=== PATIENT | female | born 1985 | race Caucasian/White ===

== ENCOUNTER 2023-02-13 08:36 | Outpatient (OUT) | payer OTHER, SELFPAY ==
[2023-02-13 09:18] LABS: Basophils Absolute Auto 0.1 10^3/uL (0.0-0.1); Basophils Percent Auto 0.7 % (0.2-2.0); Eosinophils Absolute Auto 0.2 10^3/uL (0.0-0.7); Hematocrit 36.3 % (36.0-48.0); Hemoglobin 11.3 g/dL (12.0-16.0); Immature Granulocytes Abs Auto 0.02 10^3/uL (0.00-0.03); Immature Granulocytes Pct Auto 0.2 % (0.0-0.5); Lymphocytes Absolute Auto 3.2 10^3/uL (1.2-3.8); Lymphocytes Percent Auto 38.3 % (20.5-60.0); Mean Corpuscular HGB Conc 31.1 g/dL (29.9-35.2); Mean Corpuscular Hemoglobin 24.6 pg (26.7-34.0); Mean Corpuscular Volume 78.9 fL (81.0-99.0); Mean Platelet Volume 10.6 fL (9.5-13.5); Monocytes Absolute Auto 0.6 10^3/uL (0.3-0.8); Neutrophils Absolute Auto 4.3 10^3/uL (1.4-6.5); Neutrophils Percent Auto 51.8 % (43.0-75.0); Platelet Count 317 10^3/uL (150-450); Red Cell Distribution Width 15.1 % (11.0-15.0); White Blood Count 8.4 10^3/uL (4.0-11.0)
[2023-02-13 10:07] LABS: Free T3 2.63 pg/mL (2.18-3.98); Glucose 84 mg/dL (74-106); Thyroid Stimulating Hormone 1.115 uIU/mL (0.358-3.740)
== END 2023-02-13 08:37 | disposition home or self-care (01) ==
LOC: LAB 08:36
PROVIDERS: PCP Family Medicine; Visit Provider Obstetrics & Gynecology
DX: N92.0 Excessive and frequent menstruation with regular cycle (principal); R63.5 Abnormal weight gain
CPT/HCPCS: 36415; 82947; 83525; 84443; 84481; 85025

== ENCOUNTER 2023-07-12 12:05 | Outpatient (OUT) | payer OTHER, SELFPAY ==
[2023-07-12 16:31] LABS: Influenza Virus A PCR POSITIVE (NEGATIVE); Influenza Virus B PCR NEGATIVE (NEGATIVE); SARS-CoV-2 NAA INCONCLUSIVE (NOT DETECTE)
== END 2023-07-12 12:06 | disposition home or self-care (01) ==
LOC: LAB 12:07
PROVIDERS: PCP Family Medicine; Visit Provider Nurse Practitioner Family
DX: J06.9 Acute upper respiratory infection, unspecified (principal)
CPT/HCPCS: 87635

== ENCOUNTER 2023-11-29 11:21 | Outpatient (OUT) | payer OTHER, SELFPAY ==
--- NOTE | 2023-11-29 11:28 | XR_ITS ---
[address] [address] Patient Name: ANTHONY CAMARGO MRN: [id number] date: 1985 Sex: F Assigned Patient Location: [facility] Current Patient Location: Accession/Order Number: [id number] Exam Date: 11/29/2023 11:40 Report Date: 11/30/2023 07:33 At the request of: SALINA DOWNS Procedure: XR knee LT 3V PROCEDURE: XR knee LT 3V COMPARISON: None. HISTORY: Internal Derangement Of Knee M23.90 FINDINGS: BONES:No fracture, acute abnormality, or significant arthropathy. SOFT TISSUES:Negative. No visible soft tissue swelling. EFFUSION:None visible. OTHER: Negative. XR/XR knee LT 3V IMPRESSION: No acute radiographic abnormality Electronically authenticated by: CYNTHIA MAJANO Date: 11/30/2023 07:33
--- OUTSIDE RECORDS SUMMARY | 2023-11-29 11:38 | XMS_ITS | CCD ---
Author Organization [facility] Care Team Providers Care Phys Assistant Name Role Phone Ingrid Thakkar Unavailable MD Salina Qureshi Primary Care Provider [phone] DO Leonid Lopez Attending Provider DR SALINA KENNEDY Primary Care Unavailable JACOB ., JULIETTE Admitting Unavailable JACOB ., JULIETTE Attending Unavailable JACOB Akbar, JULIETTE Consulting Unavailable ION CLEARY Consulting Unavailable DR SALINA KENNEDY Primary Care Unavailable JACOB ., JULIETTE Admitting Unavailable JULIETTE HUTCHINSON Attending Unavailable CAITLIN HAWK Consulting Unavailable RITA GALLARDO Consulting Unavailable JACOB Akbar, JULIETTE Consulting Unavailable ANTONIO MANUEL Admitting Unavailable ANTONIO MANUEL Attending Unavailable DR SALINA KENNEDY Primary Care Unavailable ANTONIO MANUEL Admitting Unavailable ANTONIO MANUEL Attending Unavailable DR SALINA KENNEDY Primary Care Unavailable MD Salina Qureshi Primary Care Provider [phone] DO Ally Sexton Attending Provider ALLY SEXTON Attending Unavailable ALLY SEXTON Attending Unavailable Salina Qureshi Primary Care Unavailable Ally Sexton Admitting Unavailable Ally Sexton Attending Unavailable Ally Sexton Attending Unavailable Salina Qureshi Primary Care Unavailable Ally Sexton Admitting Unavailable Unavailable Unavailable Unavailable Allergies Allergy Classification Reported Allergen(s) Allergy Type Date of Onset Reaction(s) Facility (5 sources) diphenhydrAMINE; Translations: [diphenhydramine] Drug Allergy 09-18-19 18 [facility] (9 sources) metFORMIN; Translations: [Metformin] Drug Allergy 03-27-20 rash [facility] (2 sources) diphenhydrAMINE; Translations: [Benadryl] Drug Allergy Unknown [facility] (4 sources) Morphine; Translations: [morphine] Drug Allergy 04-02-20 itch, Itching [facility] (1 source) imtrex Propensity to adverse reactions palpitations [employer] Other (2 sources) diphenhydrAMINE Drug Allergy 03-27-20 [facility] (2 sources) Morphine Drug Allergy [facility] (1 source) Plasmin Drug Allergy [facility] (3 sources) SUMAtriptan; Translations: [sumatriptan] Drug Allergy 04-02-20 tachycardia [facility] (1 source) Morphine Drug Allergy 04-16-20 [facility] Medications Current Medications Medication Drug Class(es) Dates Sig (Normalized) Sig (Original) acetaminophen 300 mg / butalbital 50 mg / caffeine 40 mg oral capsule (1 source) Barbiturate, Central Nervous System Stimulant, Methylxanthine take 1 capsule by mouth every four hours Fioricet 50-300-40 MG 1 capsule as needed Orally every 4 hrs Active Cortisporin Otic 1%-0.35%-1000 units/ml (1 source) Cortisporin Otic 1%-0.35%-1000 units/ml 3 drops left ear tid for 5 day(s) Active docusate sodium 100 mg oral capsule (8 sources) Start: 04-16-2023 take 1 capsule by mouth twice daily Docusate Sodium (Colace) 100 mg capsule Active 100 MG PO Twice daily April 16, 2023 8:44am Start: 11-16-2020 End: 04-02-2023 take 1 capsule by mouth once daily Docusate Sodium (Colace) 100 mg capsule Discontinued 100 MG PO Daily November 15, 2020 11:00pm April 02, 2023 12:04pm Start: 09-25-2017 End: 08-08-2020 take 100 mg by mouth once daily at bedtime Docusate Sodium Discontinued 100 MG PO Daily at bedtime September 24, 2017 11:00pm August 08, 2020 11:33am escitalopram 20 mg oral tablet (5 sources) Serotonin Reuptake Inhibitor Start: 04-02-2023 take 20 mg by mouth once daily in the morning Escitalopram Oxalate Active 20 MG PO Every morning April 02, 2023 12:00am Start: 08-08-2020 End: 04-02-2023 take 1 tablet by mouth once daily Escitalopram Oxalate (Lexapro) 10 mg Tablet Discontinued 10 MG PO Daily August 07, 2020 11:00pm April 02, 2023 12:04pm ibuprofen 600 mg oral tablet (8 sources) Nonsteroidal Anti-inflammatory Drug Start: 04-16-2023 take 600 mg by mouth every six hours Ibuprofen Active 600 MG PO Q6H April 16, 2023 12:00am Start: 11-16-2020 End: 04-02-2023 take 800 mg by mouth four times daily Ibuprofen Discontinued 800 MG PO Four times daily November 15, 2020 11:00pm April 02, 2023 12:05pm Start: 09-25-2017 End: 08-08-2020 take 600 mg by mouth every six hours Ibuprofen Discontinued 600 MG PO Every 6 hours 60 September 24, 2017 11:00pm August 08, 2020 11:33am Gar123-Ihmwhos Fumarate-Fa () 28-800 mg-mcg Tablet (4 sources) Start: 09-13-2017 take 1 tablet by mouth once daily Tpj954-Bzeqzog Fumarate-Fa () 28-800 mg-mcg Tablet Active 1 TAB PO Daily September 13, 2017 9:53am Start: 09-13-2017 End: 04-02-2023 take 1 tablet by mouth once daily Gop701-Iypwfcg Fumarate-Fa () 28-800 mg-mcg Tablet Discontinued 1 TAB PO Daily September 12, 2017 11:00pm April 02, 2023 12:05pm Start: 09-13-2017 take 1 tablet by des th once daily Ddg401-Qgmijot Fumarate-Fa () 28-800 mg-mcg Tablet Active 1 TAB PO Daily September 13, 2017 12:00am traMADol hydrochloride 50 mg oral tablet (1 source) Opioid Agonist Start: 04-16-2023 take 50 mg by mouth every six hours Tramadol Active 50 MG PO Q6H 30 April 16, 2023 12:00am Completed/Discontinued Medications Medication Drug Class(es) Dates Sig (Normalized) Sig (Original) acetaminophen 325 mg / HYDROcodone bitartrate 5 mg oral tablet (3 sources) Opioid Agonist Start: 11-16-2020 End: 04-02-2023 take 1 tablet by mouth every four to six hours Hydrocodone-Acetami nophen Discontinued 1 TAB PO EVERY 4-6 HOURS 10 November 16, 2020 April 02, 2023 12:05pm calcium carbonate 1250 mg chewable tablet (6 sources) Start: 09-04-2020 End: 04-02-2023 take 500 mg by mouth once Calcium Carbonate Discontinued 500 MG PO Per protocol September 03, 2020 11:00pm April 02, 2023 12:04pm Start: 08-08-2020 End: 08-12-2020 Calcium Carbonate (Tums 500) 500 mg calcium (1,250 mg) Tablet,Chewable Discontinued 1250 MG PO August 07, 2020 11:00pm August 12, 2020 6:51pm Norgestimate-Ethinyl Estradiol (2 sources) Progestin, Estrogen Start: 04-02-2023 End: 04-16-2023 take 1 tablet by mouth once daily in the morning Norgestimate-Ethinyl Estradiol (Denise) 0.25-35 mg-mcg tablet Discontinued 1 TAB PO Every morning April 02, 2023 12:00am April 16, 2023 8:43am Start: 04-02-2023 take 1 tablet by des th once daily in the morning Norgestimate-Ethinyl Estradiol (Denise) 0.25-35 mg-mcg tablet Active 1 TAB PO Every morning April 02, 2023 12:00am ferrous sulfate 325 mg oral tablet (3 sources) Start: 11-16-2020 End: 04-02-2023 take 325 mg by mouth once daily Ferrous Sulfate Discontinued 325 MG PO Daily November 15, 2020 11:00pm April 02, 2023 12:04pm 3 ml insulin isophane, human 100 unt/ml pen injector (3 sources) Start: 10-05-2020 End: 04-02-2023 Insulin Nph Isoph U-100 Human (Humulin N Nph Insulin Kwikpen) 100 unit/mL (3 mL) Insulin Pen Discontinued 24 UNIT SUBCUT Twice daily October 04, 2020 11:00pm April 02, 2023 12:05pm labetalol hydrochloride 200 mg oral tablet (4 sources) beta-Adrenergic Glenn Start: 09-20-2017 End: 09-25-2017 Labetalol Discontinued 1 TABLET September 19, 2017 11:00pm September 25, 2017 10:47am Problems Active Problems Problem Classification Problem Date Documented Date Episodic/Chronic Anxiety disorders (1 source) Anxiety; Translations: [Anxiety disorder, unspecified] Chronic Benign neoplasm of uterus (2 sources) Uterine leiomyoma; Translations: [Leiomyoma of uterus, unspecified] Onset: 04-16-2023 04-16-2023 Episodic Disorders of lipid metabolism (1 source) Mixed hyperlipidemia; Translations: [Mixed hyperlipidemia] Chronic E Codes: Fall (1 source) Fall (on) (from) unspecified stairs and steps, initial encounter; Translations: [FALL ON FROM UNS STAIRS STEPS INIT] Onset: 07-22-2022 Episodic Endometriosis (1 source) Uterine adenomyosis; Translations: [Adenomyosis of uterus] 04-16-2023 Chronic Esophageal disorders (1 source) Gastroesophageal reflux disease; Translations: [Gastro-esophageal reflux disease without esophagitis] Chronic Headache; including migraine (1 source) Migraine; Translations: [Migraine, unspecified, not intractable, without status migrainosus] Chronic Menstrual disorders (3 sources) Excessive and frequent menstruation with irregular cycle; Translations: [Menorrhagia] Onset: 12-17-2021 04-16-2023 Chronic Nonspecific chest pain (3 sources) Musculoskeletal chest pain; Translations: [Other chest pain] 08-12-2020 Episodic Osteoarthritis (1 source) Osteoarthritis of knee; Translations: [Osteoarthritis of knee, unspecified] Chronic Other aftercare (1 source) Other [place] (current) drug therapy; Translations: [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] Onset: 07-22-2022 Episodic Other endocrine disorders (1 source) Polycystic ovaries; Translations: [Polycystic ovarian syndrome] Chronic Other endocrine disorders (1 source) Polycystic ovary syndrome; Translations: [Polycystic ovarian syndrome] 04-16-2023 Chronic Other female genital disorders (3 sources) Abnormal uterine and vaginal bleeding, unspecified; Translations: [ABNORMAL UTERINE VAGINAL BLEED UNS] Onset: 12-15-2021 Chronic Other non-traumatic joint disorders (3 sources) Pain in right ankle and joints of right foot; Translations: [PAIN IN RIGHT ANKLE] Onset: 07-21-2022 Episodic Other nutritional; endocrine; and metabolic disorders (3 sources) Body mass index 40+ - severely obese; Translations: [Body mass index (BMI) 45.0-49.9, adult] Chronic Other nutritional; endocrine; and metabolic disorders (1 source) Metabolic syndrome X; Translations: [Metabolic syndrome] Chronic Other nutritional; endocrine; and metabolic disorders (1 source) Simple obesity ; Translations: [Other obesity due to excess calories] Chronic Residual codes; unclassified (1 source) H/O: section; Translations: [Status post delivery] Episodic Sprains and strains (5 sources) Sprain of unspecified ligament of right ankle, subsequent encounter; Translations: [Sprain of unspecified ligament of right ankle, initial encounter] Onset: 07-22-2022 Episodic Unclassified (1 source) Adenomyosis of the uterus; Translations: [Adenomyosis of the uterus] Onset: 04-16-2023 Unclassified (1 source) Encounter for other preprocedural examination; Translations: [Encounter for other preprocedural examination] Onset: 04-02-2023 Past or Other Problems Problem Classification Problem Date Documented Da te Episodic/Chronic Other aftercare (1 source) [employer] driver (current) use of hormonal contraceptives; 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] Onset: 12-17-2021 Episodic Other ear and sense organ disorders (1 source) Unspecified acute noninfective otitis externa, left ear; Translations: [Acute otitis externa of left ear, unspecified type H60.502] Onset: 01-31-2021 Resolved: 01-31-2021 Episodic Ovarian cyst (1 source) Unspecified ovarian cyst, right side; Translations: [UNSPECIFIED OVARIAN CYST RIGHT SIDE] Onset: 12-17-2021 Episodic Results Test Name Value Interpretation Reference Range Facility HCG ( test) IA.rapi d Ql (U)Ordered By: Mike Stephens on 04-16-2023 HCG ( test) Ql (U) Negative [facility] HCG,Urineon 04-16-2023 Beta HCG ( test) Ql (U) Negative Normal [facility] Comment on above: Result Comment: PERF ORMED BY: [facility] [address] [place] [address] PATHOLOGIST FAST FOOD DELIVERY DRIVER RIYA GUERRERO M.D. Performed By: #### [facility] #### [address] 04-16-2023 L ------ Specimen: [id number] Received: 04/16/23 Status: OLE Espinoza Num: [id number] Spec Type: Surgical Subm Dr: Ally Sexton DO Tissues: A Uterus w/ or w/o tubes ovaries except neoplastic or prolap (UTRS,CRVX,BILT Procedures: Gross/Micro L5 Age/ Patient Sex Location Account Attending Physician Deborah Vance 37/F [place] [id number] Ally Sexton DO SPEC NUM: [id number] RECD: 04/16/23 STATUS: OLE ESPINOZA NUM: [id number] PEE: 04/16/[address]: Ally Sexton DO ENTERED: 04/16/[address] [facility] [address]: SPEC TYPE: Surgical DEPT: S ENTERED BY: [id number] RECV BY: [id number] ORDERED: HE/, Gross/Micro L5 ORDERED: HE, Gross/Micro L5 Pathological Diagnosis Uterus, cervix, bilateral tubes and right ovary, total hysterectomy with right oophorectomy, and bilateral salpingectomy: - Cervix with mild chronic cervicitis and focal mild squamous metaplasia without dysplasia - Incidental small focal mild post scar at the lower uterine segment - Corpus with inactive to weakly type secretory endometrium but also including small focal decidual stromal change, suggesting mild progestin effect, otherwise without any hyperplasia or atypia identified - Right ovary with several follicular cysts, 1 small cystic corpus luteum, several small and mostly resolved physiological structures, and 2 corpus albicans, compatible with features of PCOS without atypia - Fimbriated right fallopian tube without significant histopathological findings - Fimbriated left fallopian tube also without significant histopathological changes Clinical Information Menorrhagia, pelvic pain, PCOS, 120 g Specimen: [id number] Received: 04/16/23 Status: OLE Espinoza Num: [id number] Spec Type: Surgical Subm Dr: Ally Sexton DO Tissues: A Uterus w/ or w/o tubes ovaries except neoplastic or prolap (UTRS,CRVX,BILT Procedures: , Gross/Micro L5 Patient: Mary JoDeborah [id number] (Continued) Specimen: [id number] Received: 04/16/23 (Continued) Signed (signature on file) Leena Mason MD 04/19/23 1733 Specimen: [id number] Received: 04/16/23 Status: OLE Espinoza Num: [id number] Spec Type: Surgical Subm Dr: Ally Sexton DO Tissues: A Uterus w/ or w/o tubes ovaries except neoplastic or prolap (UTRS,CRVX,BILT Procedures: , Gross/Micro L5 Patient: Deborah Vance [id number] (Continued) Specimen: [id number] Received: 04/16/23 (Continued) Gross Description Received in formalin labeled with the patient's name, date of and uterus, cervix, bilateral tubes, right ovary is a 118 g, 9.5 x 6.0 x 4.5 cm uterus with attached bilateral fimbriated fallopian tubes and an attached right ovary. No left ovary is received. The uterine serosa is purple-pink. The ectocervix is purple-pink with a central 0.7 cm slitlike os. The endocervix is cantu-red, glistening. There is a 0.7 cm linear umbilication in the anterior lower uterine segment consistent with site of previous . The cantu endometrium averages 0.2 cm in thickness. The pink-cantu, trabecular myometrium measures up to 2.2 cm in thickness. No myometrial lesions are identified. The right purple-lara, rubbery ovary measures 4.0 x 3.3 x 1.5 cm and contains multiple smooth-walled, clear fluid- filled cysts measuring up to 0.5 cm. The remaining cut surface is rubbery, cantu-lara. The right fimbriated fallopian tube measures 5.5 x 0.5 cm and has a pinpoint lumen on cut section the left purple-lara fimbriated fallopian tube measures 4.7 x 0.6 x 0.5 cm and has a pinpoint lumen on cut section. Financial Services Counselor sections are submitted in 8 cassettes as follows: A1 - Anterior cervix A2 - Posterior cervix A3 - Anterior lower uterine segment A4 - Anterior endomyometrium A5 - Posterior endomyometrium A6 - Right ovary A7 - Right fallopian tube A8 - Left fallopian tube Microscopic Description Eight H E slides reviewed. The microscopic examination confirms the d (more content not included)... [facility] Activated partial thrombopla stin time (aPTT) in platelet poor plasma by coagulation aOrdered By: Ally Sexton on 04-02-2023 aPTT Coag (PPP) [Time] 37.6 s 25.1-36.5 [facility] Comment on above: PMA hematocrit value greater than 55% may lead to inaccurate results in coagulation testing. Patients having hematocrit values >55% require a special collection tube for coagulation studies. Please contact the laboratory at [phone] for redraw instructions. Basic Metabolic Panelon Anion gap [Moles/Vol] 10.3 mmol/L Normal 6.0-15.0 [facility] Comment on above: Performed By: #### P T, BMP, CBC, PTT #### [facility] [address] Calcium [Mass/Vol] 9.1 mg/dL Normal 8.6-10.3 [facility] Comment on above: Result Comment: PERF ORMED BY: [facility] [address] [place] [address] PATHOLOGIST FAST FOOD DELIVERY DRIVER RIYA GUERRERO M.D. Performed By: #### P T, BMP, CBC, PTT #### [facility] [address] Chloride [Moles/Vol] 102 mmol/L Normal 98-107 [facility] Comment on above: Performed By: #### P T, BMP, CBC, PTT #### [facility] [address] [place] [address] [place] CO2 [Moles/Vol] 27.9 mmol/L Normal 21.0-31.0 [facility] Comment on above: Performed By: #### P T, BMP, CBC, PTT #### [facility] [address] [place] [address] [place] Creatinine [Mass/Vol] 0.65 mg/dL Normal 0.60-1.20 [facility] Comment on above: Performed By: #### P T, BMP, CBC, PTT #### [facility] [address] [place] [address] [place] GFR/1.73 sq M.predicted MDRD (S/P/Bld) [Vol rate/Area] mL/min/{1.73_m2} Normal [facility] Comment on above: Performed By: #### P T, BMP, CBC, PTT #### [facility] [address] Glucose [Mass/Vol] 73 mg/dL Normal 70-100 [facility] Comment on above: Result Comment: [facility] Glucose Reference Range is dependent on time and content of last meal. Glucose of more than 200 mg/dL in a nonstressed, ambulatory subject supports the diagnosis of Diabetes Mellitus. ADA recommended reference range Performed By: #### P T, BMP, CBC, PTT #### [facility] [address] Potassium [Moles/Vol] 4.2 mmol/L Normal 3.5-5.1 [facility] Comment on above: Performed By: #### P T, BMP, CBC, PTT #### [facility] [address] [place] [address] Sodium [Moles/Vol] 136 mmol/L Normal 136-145 [facility] Comment on above: Performed By: #### P T, BMP, CBC, PTT #### [facility] [address] [place] [address] Urea nitrogen [Mass/Vol] 10 mg/dL Normal 7-25 [facility] Comment on above: Performed By: #### P T, BMP, CBC, PTT #### [facility] [address] [place] [address] Basophils Auto (Bld) [#/Vol] Ordered By: Ally Sexton on 04-02-2023 Basophils (Bld) [#/Vol] 0.1 10*3/uL 0.0-0.2 [facility] Basophils/100 WBC Auto (Bld) Ordered By: Ally Sexton on 04-02-2023 Basophils/100 WBC (Bld) 0.7 % . [facility] Calcium [Mass/volume] in Ser um or PlasmaOrdered By: Ally Sexton on 04-02-2023 Calcium [Mass/Vol] 9.1 mg/dL 8.6-10.3 [facility] Carbon dioxide, total [Moles /volume] in Serum or PlasmaOrdered By: Ally Sexton on 04-02-2023 CO2 [Moles/Vol] 27.9 mmol/L 21.0-31.0 [facility] Chloride [Moles/volume] in S gilberto or PlasmaOrdered By: Ally Sexton on 04-02-2023 Chloride [Moles/Vol] 102 mmol/L 98-107 [facility] Complete Blood Count Auto Di ffon 04-02-2023 Basophils (Bld) [#/Vol] 0.1 10*3/uL Normal 0.0-0.2 [facility] Comment on above: Result Comment: PERF ORMED BY: [place] [address] PATHOLOGIST FAST FOOD DELIVERY DRIVER RIYA GUERRERO M.D. Performed By: #### P T, BMP, CBC, PTT #### [address] Basophils/100 WBC (Bld) 0.7 % Normal . [facility] Comment on above: Performed By: #### P T, BMP, CBC, PTT #### [facility] [address] [place] [address] Eosinophils (Bld) [#/Vol] 0.2 10*3/uL Normal 0.0-0.45 [facility] Comment on above: Performed By: #### P T, BMP, CBC, PTT #### [address] Eosinophils/100 WBC (Bld) 1.6 % Normal . [facility] Comment on above: Performed By: #### P T, BMP, CBC, PTT #### [facility] [address] [place] [address] Erythrocyte distribution width (RBC) [Ratio] 17.3 % High 11.9-15.3 [facility] Comment on above: Performed By: #### P T, BMP, CBC, PTT #### [facility] [address] [place] [address] Hematocrit (Bld) [Volume fraction] 37.2 % Normal 34.0-46.4 [facility] Comment on above: Performed By: #### P T, BMP, CBC, PTT #### [address] Hemoglobin (Bld) [Mass/Vol] 11.9 g/dL Normal 11.8-15.4 [facility] Comment on above: Performed By: #### P T, BMP, CBC, PTT #### [address] Lymphocytes (Bld) [#/Vol] 3.2 10*3/uL Normal 1.00-4.8 [facility] Comment on above: Performed By: #### P T, BMP, CBC, PTT #### [address] Lymphocytes/100 WBC (Bld) 35.2 % Normal . [facility] Comment on above: Performed By: #### P T, BMP, CBC, PTT #### [address] MCH (RBC) [Entitic mass] 24.7 pg Normal 24.7-34.3 [facility] Comment on above: Performed By: #### P T, BMP, CBC, PTT #### [address] MCV (RBC) [Entitic vol] 77.3 fL Low 80-100 [facility] Comment on above: Performed By: #### P T, BMP, CBC, PTT #### [address] Mean Corpuscular HGB Conc 32.0 g/dL Normal 32.0-35.0 [facility] Comment on above: Performed By: #### P T, BMP, CBC, PTT #### [address] Monocytes (Bld) [#/Vol] 0.7 10*3/uL Normal 0.0-0.8 [facility] Comment on above: Performed By: #### P T, BMP, CBC, PTT #### [facility] [address] [place] [address] [place] Monocytes/100 WBC (Bld) 7.9 % Normal . [facility] Comment on above: Performed By: #### P T, BMP, CBC, PTT #### [facility] [address] Neutrophils (Bld) [#/Vol] 5.0 10*3/uL Normal 1.8-7.7 [facility] Comment on above: Performed By: #### P T, BMP, CBC, PTT #### [facility] [address] Neutrophils/100 WBC (Bld) 54.6 % Normal . [facility] Comment on above: Performed By: #### P T, BMP, CBC, PTT #### [facility] [address] [place] [address] NRBC% 0.1 /100{WBC} Normal 0-0.5 [facility] Comment on above: Performed By: #### P T, BMP, CBC, PTT #### [facility] [address] [place] [address] [place] Platelet mean volume (Bld) [Entitic vol] 8.6 fL Normal 6.3-10.7 [facility] Comment on above: Performed By: #### P T, BMP, CBC, PTT #### [facility] [address] [place] [address] [place] Platelets (Bld) [#/Vol] 326 10*3/uL Normal 150-450 [facility] Comment on above: Performed By: #### P T, BMP, CBC, PTT #### [facility] [address] [place] [address] [place] RBC (Bld) [#/Vol] 4.82 10*6/uL Normal 3.60-5.00 [facility] Comment on above: Performed By: #### P T, BMP, CBC, PTT #### [facility] [address] [place] [address] [place] WBC (Bld) [#/Vol] 9.2 10*3/uL Normal 3.8-11.6 [facility] Comment on above: Performed By: #### P T, BMP, CBC, PTT #### [facility] [address] [place], [place] [id number] [facility] Creatinine [Mass/volume] in Serum or PlasmaOrdered By: Ally Sexton on 04-02-2023 Creatinine [Mass/Vol] 0.65 mg/dL 0.60-1.20 [facility] ECG 12 lead ECGon 04-02-2023 ECG 12 lead ECG [facility] [place] [address] [place], [place] [id number] Electrocardiograph Report Signed Patient: Deborah Vance MR#: [id number] : 1985 Acct:[id number] Age/Sex: 37 / F ADM Date: 04/02/23 Loc: Room: Type: [facility] Attending Dr: Ally Sexton DO Ordering Provider: Ally Sexton DO Date of Service: 04/02/2305/25/1117 ECG/ECG 12 lead ECG: for surgery 04/16/23 Copies to: Test Reason : Blood Pressure : / mmHG Vent. Rate : 074 BPM Atrial Rate : 074 BPM P-R Int : 126 ms QRS Dur : 098 ms QT Int : 404 ms P-R-T Axes : 037 002 -17 degrees QTc Int : 448 ms Normal sinus rhythm Voltage criteria for left ventricular hypertrophy Nonspecific T wave abnormality Abnormal ECG When compared with ECG of 12-AUG-2020 19:53, No significant change was found Confirmed by [facility] ([id number]) on 04/03/2023 12:54:40 AM Referred By: ALICE Electronically Signed By:TOMÁS CHRISTIANSON MD FACC Transcribed By: MUS Signed By Devan Christianson MD 04/03/23 0054 Normal [facility] Eosinophils Auto (Bld) [#/Vo l]Ordered By: Ally Sexton on 04-02-2023 Eosinophils (Bld) [#/Vol] 0.2 10*3/uL 0.0-0.45 [facility] Eosinophils/100 WBC Auto (Bl d)Ordered By: Ally Sexton on 04-02-2023 Eosinophils/100 WBC (Bld) 1.6 % . [facility] Erythrocyte distribution wid th Auto (RBC) [Ratio]Ordered By: Ally Sexton on 04-02-2023 Erythrocyte distribution width (RBC) [Ratio] 17.3 % 11.9-15.3 [facility] Glucose [Mass/volume] in Ser um or PlasmaOrdered By: Ally Sexton on 04-02-2023 Glucose [Mass/Vol] 73 mg/dL 70-100 [facility] Comment on above: ADA recommended refe rence rangeRandom Glucose Reference Range is dependent on time and content of last meal. Glucose of more than 200 mg/dL in a nonstressed, ambulatory subject supports the diagnosis of Diabetes Mellitus. Hematocrit Auto (Bld) [Volum e fraction]Ordered By: Ally Sexton on 04-02-2023 Hematocrit (Bld) [Volume fraction] 37.2 % 34.0-46.4 [facility] Hemoglobin [Mass/volume] in BloodOrdered By: Ally Sexton on 04-02-2023 Hemoglobin (Bld) [Mass/Vol] 11.9 g/dL 11.8-15.4 [facility] INR in Platelet poor plasma by Coagulation assayOrdered By: Ally Sexton on 04-02-2023 INR Coag (PPP) [Relative time] 1.0 {INR} [facility] Comment on above: PMINR Therapeutic Ra nge A) Pre- and Peroperative OAT started two weeks before surgery. NOT HIP SURGERY: 1.5 - 2.5 HIP SURGERY: 2 - 3B) Primary and secondary prevention of venous THROMBOSIS: 2 - 3C) Active venous thrombosis, pulmonary embolismand prevention of recurrent venous thrombosis: 2 - 3D) Prevention of arterial thromboembolismincluding patients with mechanical heart valves: 3 - 4.5 Leukocytes [#/volume] correc evelia for nucleated erythrocytes in Blood by Automated counOrdered By: Ally Sexton on 04-02-2023 WBC corrected for nucl RBC Auto (Bld) [#/Vol] 9.2 10*3/uL 3.8-11.6 [facility] Lymphocytes Auto (Bld) [#/Vo l]Ordered By: Ally Sexton on 04-02-2023 Lymphocytes (Bld) [#/Vol] 3.2 10*3/uL 1.00-4.8 [facility] Lymphocytes/100 WBC Auto (Bl d)Ordered By: Ally Sexton on 04-02-2023 Lymphocytes/100 WBC (Bld) 35.2 % . [facility] MCH Auto (RBC) [Entitic mass ]Ordered By: Ally Sexton on 04-02-2023 MCH (RBC) [Entitic mass] 24.7 pg 24.7-34.3 [facility] MCHC Auto (RBC) [Mass/Vol]Or dered By: Ally Sexton on 04-02-2023 MCHC (RBC) [Mass/Vol] 32.0 g/dL 32.0-35.0 [facility] MCV Auto (RBC) [Entitic vol] Ordered By: Ally Sexton on 04-02-2023 MCV (RBC) [Entitic vol] 77.3 fL 80-100 [facility] Monocytes Auto (Bld) [#/Vol] Ordered By: Ally Sexton on 04-02-2023 Monocytes (Bld) [#/Vol] 0.7 10*3/uL 0.0-0.8 [facility] Monocytes/100 WBC Auto (Bld) Ordered By: Ally Sexton on 04-02-2023 Monocytes/100 WBC (Bld) 7.9 % . [facility] Neutrophils Auto (Bld) [#/Vo l]Ordered By: Ally Sexton on 04-02-2023 Neutrophils (Bld) [#/Vol] 5.0 10*3/uL 1.8-7.7 [facility] Neutrophils/100 WBC Auto (Bl d)Ordered By: Ally Sexton on 04-02-2023 Neutrophils/100 WBC (Bld) 54.6 % . [facility] No Panel InformationOrdered By: Ally Sexton on 04-02-2023 Estimated GFR (CKD-EPI) > 60.0 mL/Min [facility] Creatinine Clearance (Chem N/A [facility] Nucleated erythrocytes [Pres ence] in Blood by Automated countOrdered By: Ally Sexton on 04-02-2023 Nucleated RBC Auto Ql (Bld) 0.1 /100{WBC} 0-0.5 [facility] PST Type and Screenon 2022 ABO and Rh group Nom (Bld) Blood group O Rh(D) positive Normal [facility] Comment on above: Order Comment: Date of Surgery: [id number] Result Comment: PERF ORMED BY: [place] [address] PATHOLOGIST [employer] DRIVER RIYA GUERRERO M.D. Partial Thromboplastin Timeo n 04-02-2023 aPTT Coag (Bld) [Time] 37.6 s High 25.1-36.5 [facility] Comment on above: Result Comment: PM A hematocrit value greater than 55% may lead to inaccurate results in coagulation testing. Patients having hematocrit values >55% require a special collection tube for coagulation studies. Please contact the laboratory at [phone] for redraw instructions. PERFORMED BY: [place] [address] PATHOLOGIST [employer] DELIVERY DRIVER RIYA GUERRERO M.D. Performed By: #### P T, BMP, CBC, PTT #### [address] Platelet mean volume Auto (B ld) [Entitic vol]Ordered By: Ally Sexton on 04-02-2023 Platelet mean volume (Bld) [Entitic vol] 8.6 fL 6.3-10.7 [facility] Platelets Auto (Bld) [#/Vol] Ordered By: Ally Sexton on 04-02-2023 Platelets (Bld) [#/Vol] 326 10*3/uL 150-450 [facility] Potassium [Moles/volume] in Serum or PlasmaOrdered By: Ally Sexton on 04-02-2023 Potassium [Moles/Vol] 4.2 mmol/L 3.5-5.1 [facility] Prothrombin Time INRon 04-02 INR Coag (PPP) [Relative time] 1.0 {INR} Normal [facility] Comment on above: Result Comment: PM INR Therapeutic Range A) Pre- and Peroperative OAT started two weeks before surgery. NOT HIP SURGERY: 1.5 - 2.5 HIP SURGERY: 2 - 3 B) Primary and secondary prevention of venous THROMBOSIS: 2 - 3 C) Active venous thrombosis, pulmonary embolism and prevention of recurrent venous thrombosis: 2 - 3 D) Prevention of arterial thromboembolism including patients with mechanical heart valves: 3 - 4.5 Performed By: #### P T, BMP, CBC, PTT #### [facility] [address] [id number] [facility] PT Coag (PPP) [Time] 12.2 s Normal 9.0-12.9 [facility] Comment on above: Result Comment: PM A hematocrit value greater than 55% may lead to inaccurate results in coagulation testing. Patients having hematocrit values >55% require a special collection tube for coagulation studies. Please contact the laboratory at [phone] for redraw instructions. Performed By: #### P T, BMP, CBC, PTT #### [facility] [address] [id number] [facility] Prothrombin time (PT)Ordered By: Ally Sexton on 04-02-2023 PT Coag (PPP) [Time] 12.2 s 9.0-12.9 [facility] Comment on above: PMA hematocrit value greater than 55% may lead to inaccurate results in coagulation testing. Patients having hematocrit values >55% require a special collection tube for coagulation studies. Please contact the laboratory at [phone] for redraw instructions. RBC Auto (Bld) [#/Vol]Ordere d By: Ally Sexton on 04-02-2023 RBC (Bld) [#/Vol] 4.82 10*6/uL 3.60-5.00 [facility] Serum or plasma anion gap de terminationOrdered By: Ally Sexton on 04-02-2023 Anion gap [Moles/Vol] 10.3 mmol/L 6.0-15.0 [facility] Sodium [Moles/volume] in Ser um or PlasmaOrdered By: Ally Sexton on 04-02-2023 Sodium [Moles/Vol] 136 mmol/L 136-145 [facility] Urea nitrogen [Mass/volume] in Serum or PlasmaOrdered By: Ally Sexton on 04-02-2023 Urea nitrogen [Mass/Vol] 10 mg/dL 7-25 [facility] WBC Auto (Bld) [#/Vol]Ordere d By: Ally Sexton on 04-02-2023 WBC (Bld) [#/Vol] 9.2 10*3/uL 3.8-11.6 [facility] XR ANKLE RT MIN 3 VIEWSon XR ANKLE RT MIN 3 VIEWS EXAM: XR ANKLE RT MIN 3 VIEWS HISTORY: Fell down steps one hour ago. COMPARISON: None. TECHNIQUE: AP, mortise and lateral views of the right ankle performed. FINDINGS: The bony alignment and mineralization are within normal limits. There is no fracture. The plafond and talar dome are smoothly marginated. The ankle mortise is anatomic. The joint spaces are normal. There is no soft tissue abnormality. IMPRESSION: Unremarkable right ankle series. Electronically authenticated by: ION CLEARY Date: 2022-07-21 07:56 Normal [facility] CBC AUTO DIFFon 12-15-2021 BASO # 0.1 103/ul Normal 0.0-0.1 [facility] Comment on above: Performed By: #### C BC #### [facility] [address] [address] [address] Beni Mason Basophils/100 WBC (Bld) 0.7 % Normal 0.2-2.0 [facility] Comment on above: Performed By: #### C BC #### [facility] [address] [address] [address] Beni Mason EO # 0.2 103/ul Normal 0.0-0.7 [facility] Comment on above: Performed By: #### C BC #### [facility] [address] [address] [address] Beni Mason Eosinophils/100 WBC (Bld) 1.8 % Normal 0.9-7.0 [facility] Comment on above: Performed By: #### C BC #### [facility] [address] [address] [address] Beni Mason Erythrocyte distribution width (RBC) [Ratio] 13.0 % Normal 11.0-15.0 [facility] Comment on above: Performed By: #### C BC #### [facility] [address] [place] [address] Dr. Beni Mason Hematocrit (Bld) [Volume fraction] 38.7 % Normal 36.0-48.0 [facility] Comment on above: Performed By: #### C BC #### [facility] [address] [place] [address] Dr. Beni Mason Hemoglobin (Bld) [Mass/Vol] 12.8 g/dL Normal 12.0-16.0 [facility] Comment on above: Performed By: #### C BC #### [facility] [address] [place] [address] Dr. Beni Mason IG # 0.06 10e3/ul Critically high 0.00-0.03 [facility] Comment on above: Performed By: #### C BC #### [facility] [address] [place] [address] Dr. Beni Mason IG % 0.4 % Normal 0.0-0.5 [facility] Comment on above: Performed By: #### C BC #### [facility] [address] [place] [address] Dr. Beni Mason LYMPH # 5.1 103/ul Critically high 1.2-3.8 [facility] Comment on above: Performed By: #### C BC #### [facility] [address] [place] [address] Dr. Beni Mason Lymphocytes/100 WBC (Bld) 38.4 % Normal 20.5-60.0 [facility] Comment on above: Performed By: #### C BC #### [facility] [address] [place] [address] Dr. Beni Mason MANUAL DIFF REQ NO Normal [facility] Comment on above: Performed By: #### C BC #### [facility] [address] [place] [address] Dr. Beni Mason MCH (RBC) [Entitic mass] 29.0 pg Normal 26.7-34.0 [facility] Comment on above: Performed By: #### C BC #### [facility] [address] [place] [address] Dr. Beni Mason MCHC (RBC) [Mass/Vol] 33.1 g/dL Normal 29.9-35.2 [facility] Comment on above: Performed By: #### C BC #### [facility] [address] [place] [address] Dr. Beni Mason MCV (RBC) [Entitic vol] 87.6 fL Normal 81.0-99.0 [facility] Comment on above: Performed By: #### C BC #### [facility] [address] [place] [address] Dr. Beni Mason MONO # 0.8 103/ul Normal 0.3-0.8 [facility] Comment on above: Performed By: #### C BC #### [facility] [address] [place] [address] Dr. Beni Mason Monocytes/100 WBC (Bld) 6.0 % Normal 1.7-12.0 [facility] Comment on above: Performed By: #### C BC #### [facility] [address] [place] [address] Dr. Beni Mason NEUT # 7.0 103/ul Critically high 1.4-6.5 [facility] Comment on above: Performed By: #### C BC #### [facility] [address] [place] [address] Dr. Beni Mason Neutrophils/100 WBC (Bld) 52.7 % Normal 43.0-75.0 [facility] Comment on above: Performed By: #### C BC #### [facility] [address] [place] [address] Dr. Beni Mason Platelet mean volume (Bld) [Entitic vol] 10.0 fL Normal 9.5-13.5 [facility] Comment on above: Performed By: #### C BC #### [facility] [address] [place] [address] Dr. Beni Mason PLT 345 103/ul Normal 150-450 [facility] Comment on above: Performed By: #### C BC #### [facility] [address] [place] [address] Dr. Beni Mason RBC 4.42 106/ul Normal 4.20-5.40 [facility] Comment on above: Performed By: #### C BC #### [facility] [address] [place] [address] Dr. Beni Mason WBC 13.3 103/ul Critically high 4.0-11.0 [facility] Comment on above: Performed By: #### C BC #### [facility] [address] [place] [address] Dr. Beni Mason CULTURE URINEon 12-15-2021 CULTURE URINE Culture Observations : LIGHT GROWTH OF MIXED GENITAL MIRI. NO POTENTIAL PATHOGENS SEEN. Normal [facility] Comment on above: Performed By: #### U RCX #### [facility] [address] [place] [address] Dr. Beni Mason ER URINE PROFILEon Bilirubin Ql (U) Negative Normal NEGATIVE [facility] Comment on above: Performed By: #### P REGU, ERUR, UMICRO #### [facility] [address] [place] [address] Dr. Beni Mason Clarity (U) CLOUDY Abnormal CLEAR [facility] Comment on above: Performed By: #### P REGU, ERUR, UMICRO #### [facility] [address] [place] [address] Dr. Beni Mason Color (U) LT. YELLOW Normal YELLOW [facility] Comment on above: Performed By: #### P REGU, ERUR, UMICRO #### [facility] [address] [place] [address] Dr. Beni GONZALEZ A micrscopic examina tion will be performed if indicated. Normal [facility] Comment on above: Performed By: #### P REGU, ERUR, UMICRO #### [facility] [address] [place] [address] Dr. Beni Mason Glucose Ql (U) Negative Normal NEGATIVE [facility] Comment on above: Performed By: #### P REGU, ERUR, UMICRO #### [facility] [address] [place] [address] Dr. Beni Mason Hemoglobin Ql (U) LARGE Abnormal NEGATIVE [facility] Comment on above: Performed By: #### P REGU, ERUR, UMICRO #### [facility] [address] [address] [address] Beni Mason Ketones Ql (U) Negative Normal NEGATIVE [facility] Comment on above: Performed By: #### P REGU, ERUR, UMICRO #### [facility] [address] [place] [address] Dr. Beni Mason LEUKOCYTES Negative Normal NEGATIVE [facility] Comment on above: Performed By: #### P REGU, ERUR, UMICRO #### [facility] [address] [place] [address] Dr. Beni Mason Nitrite Ql (U) Negative Normal NEGATIVE [facility] Comment on above: Performed By: #### P REGU, ERUR, UMICRO #### [facility] [address] [place] [address] Dr. Beni Mason pH (U) 6.0 [pH] Normal 5-9 [facility] Comment on above: Performed By: #### P REGU, ERUR, UMICRO #### [facility] [address] [address] [address] Beni Mason Protein (U) [Mass/Vol] 100 mg/dL Abnormal NEGAT MEDHAT/ TRACE [facility] Comment on above: Performed By: #### P REGU, ERUR, UMICRO #### [facility] [address] [address] [address] Beni Mason SPEC GRAVITY 1.010 Normal 1.005-<=1.0 25 [facility] Comment on above: Performed By: #### P REGU, ERUR, UMICRO #### [facility] [address] [place] [address] Dr. Beni Mason UR MICRO IND INDICATED Normal [facility] Comment on above: Performed By: #### P REGU, ERUR, UMICRO #### [facility] [address] [place] [address] Dr. Beni Mason Urobilinogen Qn (U) 0.2 {Linda'U}/dL Normal 0.2 - 1. 0 [facility] Comment on above: Performed By: #### P REGU, ERUR, UMICRO #### [facility] [address] [place] [address] Dr. Beni Mason URon 12-15-2021 , QUAL Negative Normal NEGATIVE [facility] Comment on above: Performed By: #### P REGU, ERUR, UMICRO #### [facility] [address] [place] [address] Dr. Beni Mason PROTIMEon 12-15-2021 INR Coag (PPP) [Relative time] 0.97 {INR} Normal [facility] Comment on above: Performed By: #### P T, PTT #### [facility] [address] [place] [address] Dr. Beni Mason INR GUIDELINES SEE BELOW Normal [facility] Comment on above: Result Comment: SAMUEL RED INR: 2.0 - 3.0 CONDITIONS NOT LISTED BELOW 2.5 - 3.5 FOR PROSTHETIC HEART VALVE REPLACEMENT 2.5 - 3.5 RECURRENT THROMBOSIS Performed By: #### P T, PTT #### [facility] [address] [place] [address] Dr. Beni Mason PT Coag (PPP) [Time] 10.5 s Normal 9.0-11.6 [facility] Comment on above: Performed By: #### P T, PTT #### [facility] [address] [place] [address] Dr. Beni Mason PTTon 12-15-2021 aPTT Coag (Bld) [Time] 30.2 s Normal 22.3-36.2 [facility] Comment on above: Performed By: #### P T, PTT #### [facility] [address] [place] [address] Dr. Beni Mason URINE MICROSCOPIC ONLYon BACTERIA SMALL Abnormal NONE SEEN [facility] Comment on above: Performed By: #### P REGU, ERUR, UMICRO #### [facility] [address] [place] [address] Dr. Beni Mason Bacteria identified Cx Nom (U) INDICATED Normal [facility] Comment on above: Performed By: #### P REGU, ERUR, UMICRO #### [facility] [address] [address] [address] Beni Mason CAST NONE SEEN Normal NONE SEEN [facility] Comment on above: Performed By: #### P REGU, ERUR, UMICRO #### [facility] [address] [place] [address] Dr. Beni Mason Crystals LM Nom (Urine sed) SEEN Abnormal NONE SEEN [facility] Comment on above: Performed By: #### P REGU, ERUR, UMICRO #### [facility] [address] [place] [address] Dr. Beni Mason Epithelial cells LM Ql (Urine sed) RARE Normal NONE SEEN /RARE [facility] Comment on above: Performed By: #### P REGU, ERUR, UMICRO #### [facility] [address] [place] [address] Dr. Beni Mason MUCOUS TRACE Abnormal NONE SEEN [facility] Comment on above: Performed By: #### P REGU, ERUR, UMICRO #### [facility] [address] [place] [address] Dr. Beni Mason RBC (U) [#/Vol] /uL Abnormal 0-2 [facility] Comment on above: Performed By: #### P REGU, ERUR, UMICRO #### [facility] [address] [place] [address] Dr. Beni Mason WBC 0-2 Abnormal NONE SEEN [facility] Comment on above: Performed By: #### P REGU, ERUR, UMICRO #### [facility] [address] [place] [address] Dr. Beni Mason US PELVIS TRANSVAGon 08-15-2 022 US PELVIS TRANSVAG EXAM: US PELVIS REES SVAG HISTORY: Bleeding COMPARISON: None available. TECHNIQUE: Real time pelvic ultrasound examination was performed using Duplex Doppler by transvaginal approach. Transvaginal approach was medically necessary for optimal imaging. FINDINGS: UTERUS: Uterus measures 9.8 x 4.3 x 4.8 cm. No focal myometrial lesions are seen. ENDOMETRIUM: The endometrium is within normal limits. Endometrial stripe measures up to 8 mm in thickness. RIGHT OVARY: The right ovary is normal in size. Right ovary measures 4.2 x 2.8 x 2.0 cm. Arterial and venous blood flow is seen. Resistive index measures 0.54. No suspicious solid or cystic lesions. Right ovarian follicles noted. Indeterminate subcentimeter 7 x 6 x 5 mm hyperechoic focus in the right ovary of uncertain clinical significance, could questionably represent a small complex cyst. LEFT OVARY: The left ovary is normal in size. Left ovary measures 4.2 x 2.5 x 1.9 cm. Arterial and venous blood flow is seen. Resistive index measures 0.53. No suspicious solid or cystic lesions. Left ovarian follicles noted. There is no significant pelvic free fluid. IMPRESSION: 1. No sonographic evidence of acute pelvic abnormality. No pelvic free fluid. 2. Uterus and endometrium unremarkable. 3. Bilateral ovarian follicles noted. Indeterminate subcentimeter 7 x 6 x 5 mm hyperechoic focus in the right ovary of uncertain clinical significance, could questionably represent a small complex cyst Electronically authenticated by: RITA GALLARDO Date: 2021-12-15 18:44 Normal [facility] Basophils Auto (Bld) [#/Vol] Ordered By: Leonid Lopez on 12-05-2021 Basophils (Bld) [#/Vol] 0.1 10*3/uL 0.0-0.2 [facility] Basophils/100 WBC Auto (Bld) Ordered By: Leonid Lopez on 12-05-2021 Basophils/100 WBC (Bld) 1.0 % . [facility] Blood hemoglobin measurement (mass/volume)Ordered By: Leonid Lopez on 12-05-2021 Hemoglobin (Bld) [Mass/Vol] 13.1 g/dL 11.8-15.4 [facility] Blood leukocytes automated c ount (number/volume)Ordered By: Leonid Lopez on 12-05-2021 WBC (Bld) [#/Vol] 6.0 10*3/uL 4.5-11.0 [facility] Body fluid albumin measureme nt (mass/volume)Ordered By: Leonid Lopez on 12-05-2021 Albumin (Body fld) [Mass/Vol] 3.4 g/dL 3.2-5.5 [facility] Cholesterol [Mass/volume] in Serum or PlasmaOrdered By: Leonid Lopez on 12-05-2021 Cholesterol [Mass/Vol] 162 mg/dL 140-200 [facility] Comment on above: Chol less than 200 m g/dl low risk Chol 201-239 mg/dl borderline risk Chol 240 mg/dl and greater high risk Cholesterol in LDL Calc [Mas s/Vol]Ordered By: Leonid Lopez on 12-05-2021 Cholesterol in LDL [Mass/Vol] 87 mg/dL 0-100 [facility] Comment on above: LDL ATP III CLASSIFI CATION LDL less than 100 mg/dL Optimal LDL 100-129 mg/dL Near or above optimal LDL 130-159 mg/dL Borderline high LDL 160-189 mg/dL High LDL greater than 189 mg/dL Very high Cholesterol in VLDL Calc [Ma ss/Vol]Ordered By: Leonid Lopez on 12-05-2021 Cholesterol in VLDL [Mass/Vol] 24 mg/dL [facility] Creatinine and Glomerular fi ltration rate.predicted panel (S/P/Bld)Ordered By: Leonid Lopez on 12-05-2021 Creatinine [Mass/Vol] 0.77 mg/dL 0.44-1.03 [facility] Eosinophils Auto (Bld) [#/Vo l]Ordered By: Leonid Lopez on 12-05-2021 Eosinophils (Bld) [#/Vol] 0.1 10*3/uL 0.0-0.45 [facility] Eosinophils/100 WBC Auto (Bl d)Ordered By: Leonid Lopez on 12-05-2021 Eosinophils/100 WBC (Bld) 2.3 % . [facility] Erythrocyte distribution wid th Auto (RBC) [Ratio]Ordered By: Leonid Lopez on 12-05-2021 Erythrocyte distribution width (RBC) [Ratio] 13.3 % 11.9-15.3 [facility] Estimated glomerular filtrat ion rate (GFR) non- AmericanOrdered By: Leonid Lopez on 12-05-2021 GFR/1.73 sq M.predicted among non-blacks MDRD (S/P/Bld) [Vol rate/Area] > 60 mL/Min [facility] Globulin Calc (S) [Mass/Vol] Ordered By: Leonid Lopez on 12-05-2021 Globulin (S) [Mass/Vol] 3.5 g/dL [facility] Hematocrit Auto (Bld) [Volum e fraction]Ordered By: Leonid Lopez on 12-05-2021 Hematocrit (Bld) [Volume fraction] 39.3 % 34.0-46.4 [facility] - Hematology and Cell countsOrdered By: Leonid Lopez on 12-05-2021 Nucleated RBC/100 WBC (Bld) [Ratio] 0.0 % 0-0.5 [facility] Lymphocytes Auto (Bld) [#/Vo l]Ordered By: Leonid Lopez on 12-05-2021 Lymphocytes (Bld) [#/Vol] 1.8 10*3/uL 1.00-4.8 [facility] Lymphocytes/100 WBC Auto (Bl d)Ordered By: Leonid Lopez on 12-05-2021 Lymphocytes/100 WBC (Bld) 30.5 % . [facility] MCH Auto (RBC) [Entitic mass ]Ordered By: Leonid Lopez on 12-05-2021 MCH (RBC) [Entitic mass] 29.0 pg 24.7-34.3 [facility] MCHC Auto (RBC) [Mass/Vol]Or dered By: Leonid Lopez on 12-05-2021 MCHC (RBC) [Mass/Vol] 33.4 g/dL 32.0-35.0 [facility] MCV Auto (RBC) [Entitic vol] Ordered By: Leonid Lopez on 12-05-2021 MCV (RBC) [Entitic vol] 86.8 fL 80-100 [facility] Monocytes Auto (Bld) [#/Vol] Ordered By: Leonid Lopez on 12-05-2021 Monocytes (Bld) [#/Vol] 0.7 10*3/uL 0.0-0.8 [facility] Monocytes/100 WBC Auto (Bld) Ordered By: Leonid Lopez on 12-05-2021 Monocytes/100 WBC (Bld) 12.2 % . [facility] Neutrophils Auto (Bld) [#/Vo l]Ordered By: Leonid Lopez on 12-05-2021 Neutrophils (Bld) [#/Vol] 3.2 10*3/uL 1.8-7.7 [facility] Neutrophils/100 WBC Auto (Bl d)Ordered By: Leonid Lopez on 12-05-2021 Neutrophils/100 WBC (Bld) 54.0 % . [facility] No Panel InformationOrdered By: Leonid Lopez on 12-05-2021 Estimated GFR () > 60 mL/Min [facility] Comment on above: GFR estimated refere nce range: According to KDOQI guidelines, <60 ml/min/1.73m2 is sufficient to diagnose a patient with chronic kidney disease. Pharmacy Creatinine Clearance (Chem N/A [facility] Platelet mean volume Auto (B ld) [Entitic vol]Ordered By: Leonid Lopez on 12-05-2021 Platelet mean volume (Bld) [Entitic vol] 9.3 fL 6.3-10.7 [facility] Platelets Auto (Bld) [#/Vol] Ordered By: Leonid Lopez on 12-05-2021 Platelets (Bld) [#/Vol] 227 10*3/uL 150-450 [facility] Protein [Mass/volume] in Ser um or PlasmaOrdered By: Leonid Lopez on 12-05-2021 Protein [Mass/Vol] 6.9 g/dL 6.1-7.9 [facility] RBC Auto (Bld) [#/Vol]Ordere d By: Leonid Lopez on 12-05-2021 RBC (Bld) [#/Vol] 4.52 10*6/uL 3.60-5.00 [facility] Serum or plasma alanine murray otransferase measurement without P-5'-P (enzymatic activiOrdered By: Leonid Lopez on 12-05-2021 ALT No additional P-5'-P [Catalytic activity/Vol] 43 U/L 10-60 [facility] Serum or plasma albumin/glob ulin mass ratioOrdered By: Leonid Lopez on 12-05-2021 Albumin/Globulin [Mass ratio] 1.0 {ratio} [facility] Serum or plasma alkaline nixon sphatase measurement (enzymatic activity/volume)Ordered By: Leonid Lopez on 12-05-2021 ALP [Catalytic activity/Vol] 76 U/L 32-92 [facility] Serum or plasma aspartate am inotransferase measurement (enzymatic activity/volume)Ordered By: Leonid Lopez on 12-05-2021 AST [Catalytic activity/Vol] 37 U/L 10-42 [facility] Serum or plasma calcium mirta urement (mass/volume)Ordered By: Leonid Lopez on 12-05-2021 Calcium [Mass/Vol] 9.2 mg/dL 8.2-10.2 [facility] Serum or plasma chloride cynthia surement (moles/volume)Ordered By: Leonid Lopez on 12-05-2021 Chloride [Moles/Vol] 101 mmol/L 95-114 [facility] Serum or plasma glucose mirta urement (mass/volume)Ordered By: Leonid Lopez on 12-05-2021 Glucose [Mass/Vol] 79 mg/dL 70-100 [facility] Comment on above: ADA recommended refe rence range Random Glucose Reference Range is dependent on time and content of last meal. Glucose of more than 200 mg/dL in a nonstressed, ambulatory subject supports the diagnosis of Diabetes Mellitus. Serum or plasma high density lipoprotein (HDL) cholesterol measurementOrdered By: Leonid Lopez on 12-05-2021 Cholesterol in HDL [Mass/Vol] 51 mg/dL 35-85 [facility] Comment on above: HDL CHOL ATP-III CLA SSIFICATION Cardiovascular Risk HDL > or equal to 60 mg/dL LOW HDL < 40 mg/dL HIGH Serum or plasma potassium me asurement (moles/volume)Ordered By: Leonid Lopez on 12-05-2021 Potassium [Moles/Vol] 3.8 mmol/L 3.5-5.1 [facility] Serum or plasma sodium measu rement (moles/volume)Ordered By: Leonid Lopez on 12-05-2021 Sodium [Moles/Vol] 136 mmol/L 136-146 [facility] Serum or plasma total biliru bin measurement (mass/volume)Ordered By: Leonid Lopez on 12-05-2021 Bilirubin [Mass/Vol] 0.2 mg/dL 0.3-1.2 [facility] Serum or plasma total carbon dioxide measurement (moles/volume)Ordered By: Leonid Lopez on 12-05-2021 CO2 [Moles/Vol] 26.9 mmol/L 22.0-30.0 [facility] Serum or plasma total choles terol/high density lipoprotein (HDL) cholesterol mass ratOrdered By: Leonid Lopez on 12-05-2021 Cholesterol.total/Chol esterol in HDL [Mass ratio] 3.2 {ratio} <5.0 [facility] Serum or plasma urea nitroge n measurement (mass/volume)Ordered By: Leonid Lopez on 12-05-2021 Urea nitrogen [Mass/Vol] 9 mg/dL - [facility] TSH DL <= 0.005 mIU/L QnOrde red By: Leonid Lopez on 12-05-2021 TSH Qn 1.12 m[IU]/L 0.45-5.33 [facility] Triglyceride [Mass/volume] i n Serum or PlasmaOrdered By: Leonid Lopez on 12-05-2021 Triglyceride [Mass/Vol] 121 mg/dL 35-149 [facility] Comment on above: TRIG ATP III CLASSIF ICATION TRIG less than 150 mg/dL Normal TRIG 150-199 mg/dL Borderline high TRIG 200-500 mg/dL High TRIG greater than 500 mg/dL Very high Standard traceable to the Center for Disease Conrtrol and Prevention (CDC) test method. Vital Signs Date Time Vital Sign Value Performing Clinician Facility 04-16-2023 14:23-0500 Body temperature 98.4 [degF] MD Salina Qureshi Work Phone: [facility] 04-16-2023 14:23-0500 Diastolic blood pressure 84 mm[Hg] MD Salina Qureshi Work Phone: [facility] 04-16-2023 14:23-0500 Heart rate 80 /min MD Salina Qureshi Work Phone: [facility] 04-16-2023 14:23-0500 Respiratory rate 20 /min MD Salina Qureshi Work Phone: [facility] 04-16-2023 14:23-0500 SaO2% (BldA) [Mass fraction] 99 % MD Salina Qureshi Work Phone: [facility] 04-16-2023 14:23-0500 Systolic blood pressure 126 mm[Hg] MD Salina Qureshi Work Phone: [facility] 04-16-2023 11:08-0500 Inhaled oxygen flow rate 2 L/min MD Salina Qureshi Work Phone: [facility] 04-16-2023 06:37-0500 Body height 167.64 cm MD Salina Qureshi Work Phone: [facility] 04-16-2023 06:37-0500 Body mass index (BMI) [Ratio] 46.2 kg/m2 MD Salina Qureshi Work Phone: [facility] 04-16-2023 06:37-0500 Body weight 130 kg MD Sailna Qureshi Work Phone: [facility] 01-31-2021 19:00-0400 Body height 167 cm Ingrid Thakkar Other [employer] Other 01-31-2021 19:00-0400 Body mass index (BMI) [Ratio] 44.56 kg/m2 Ingrid Thakkar Other [employer] Other 01-31-2021 19:00-0400 Body temperature 96.4 [degF] Ingrid Thakkar Other [employer] Other 01-31-2021 19:00-0400 Body weight 124.29 kg Ingrid Thakkar Other [employer] Other 01-31-2021 19:00-0400 Diastolic blood pressure 76 mm[Hg] Ingrid Bergmanmond Other [employer] Other 01-31-2021 19:00-0400 Respiratory rate 62 /min Ingrid Bergmanmond Other [employer] Other 01-31-2021 19:00-0400 SaO2% (BldA) [Mass fraction] 99 % Ingrid Thakkar Other [employer] Other 01-31-2021 19:00-0400 Systolic blood pressure 138 mm[Hg] Ingrid Bergmanmond Other [employer] Other Encounters Encounter Date Encounter Type Care Provider Facility Start: 05-27-2023 End: 05-27-2023 ambulatory ALLY SEXTON Not Available Start: 05-05-2023 End: 05-05-2023 ambulatory ALLY SEXTON Not Available Start: 04-16-2023 End: 04-16-2023 ambulatory Salina Qureshi Facility:[facility] Start: 04-16-2023 End: 04-16-2023 Admission to same day surgery center MD Salina Qureshi Work Phone: [facility] [place] Start: 04-16-2023 End: 04-16-2023 ambulatory MD Salina Qureshi Work Phone: [facility] Work Phone: Start: 04-02-2023 End: 04-02-2023 ambulatory Ally Sexton Facility:[facility] Start: 04-02-2023 End: 04-02-2023 ambulatory MD Salina Qureshi Work Phone: [facility] Work Phone: Start: 04-02-2023 End: 04-02-2023 Patient encounter procedure MD Salina Qureshi Work Phone: [facility] Work Phone: Start: 08-11-2022 ambulatory ANTONIO MANUEL Facilit y:[facility] Start: 08-04-2022 ambulatory ANTONIO MANUEL Facilit y:[facility] Start: 07-21-2022 End: 07-21-[address] SALINA QURESHI . Facility:[facility] Start: 12-15-2021 End: 12-15-[address] SALINA QURESHI . Facility:[facility] Start: 12-05-2021 End: 12-05-2021 Departed Referred MD Salina Qureshi Work Phone: [facility] Start: 01-31-2021 Office outpatient vi sit 15 minutes Ingrid Thakkar [facility] Start: 09-18-2020 ambulatory Facility:[facility] Procedures Date Procedure Procedure Detail Performing Clinician Start: 04-16-2023 Total hysterectomy v ia vaginal approach MD Salina Qureshi Work Phone: Start: 04-02-2023 Antibody screen Salina Qureshi Comment on above: Order Comment: Date of Surgery: [id number] Result Comment: PERF ORMED BY: [facility] [address] [place] [address] PATHOLOGIST [employer] DRIVER RIYA GUERRERO M.D. H/O: section S/P MD Payne Work Phone: H/O: hysterectomy S/P laparoscop ic hysterectomy MD Salina Qureshi Work Phone: Plan of Treatment Date Care Activity Detail Author Start: 04-16-2023 Hospital admission [facility] Start: 04-16-2023 [facility] Patient referral [facility] Work Phone: Immunizations Immunization Date Immunization Notes Care Provider Fa cilialli 11-16-2020 measles, mumps and rubella virus vaccine MD Salina Qureshi Work Phone: [facility] 07-17-2021 tetanus toxoid, redu jefferson diphtheria toxoid, and acellular pertussis vaccine, adsorbed MD Salina Qureshi Work Phone: [facility] 09-25-2017 measles, mumps and rubella virus vaccine [facility] 09-24-2017 tetanus toxoid, redu jefferson diphtheria toxoid, and acellular pertussis vaccine, adsorbed [facility] Payers Date Payer Category Payer Self-pay [id number] 1985 Unknown [id number] 2.16.84 [id number] 1985 Unknown [id number] 2.16.84 [id number] 1985 Unknown [id number] 2.16.84 [id number] 1985 Unknown [id number] 2.16.84 [id number] 1986 Unknown [id number] 2.16.84 [id number] 1986 Unknown [id number] 1959 Unknown [id number] Unknown [id number] 2.16.8 [id number] Unknown [id number] 2.16.8 [id number] Social History Date Type Detail Facility Tobacco smoking status NHIS Unknown if ever smoked [facility] Start: 1985 Sex Assigned At Female F [facility] Sex Assigned At Sex Assigned At Bir th [facility] Other Start: 11-15-2020 End: 04-16-2023 Tobacco smoking status NHIS Never smoked tobacco (finding) [facility] Goals Date Patient Goal Desired Activity /State Evaluation note 01-31-2021 Note Date & Type Note Facility 01-31-2021 Evaluation note Encounter Date Diagnosis Assessment Notes Jan, Acute otitis externa of left ear, unspecified type (ICD-10 - H60.502) Drink plenty of fluids and get plenty of rest. Use the eardrops as prescribed. Take Tylenol or Motrin as needed for aches pains or fevers. Follow-up with your family physician if no improvement in 2 to 3 days [employer] Other Evaluation note Note Date & Type Note Facility Evaluation note No assessment information availa [facility] Work Phone: History general Narrative - Reported Note Date & Type Note Facility History general Narrative - Reported Type Medical History PCOS Medical History Esophageal reflux Medical History chronic depression Medical History anxiety Medical History migraine headache Medical History HTN, when Medical History seizures, as an Medical History Arthritis, knee, left Medical History Hiatal hernia Medical History Insulin Resistance Medical History Loud snorer Surgical History EGD Surgical History C section Surgical History D&C [employer] Other Hospital Discharge instructions Note Date & Type Note Facility Hospital Discharge instructions Additional Instructions DISCHARGE INSTRUCTIONS FOR HYSTERECTOMY (TVH, LAVH, TLH) -During your time at home until your first office appointment we recommend that you assume the same type of activities that you have been doing while in the hospital. You may ride in the car unless otherwise specifically told not to. Unless specifically otherwise stated, generally you may drive the car when you feel strong enough to make emergency manuevers as needed. -The incisions on your abdomen have been closed with dissolvable suture. The outer bandages may be removed in 48 hours. The steri-strips underneath may be removed in 7 days. Keep them clean and dry. -You may walk up and down stairs. At first take one step at a time -- one step - stop, one step - stop, one step - stop. -You may do light housework, such as dusting, dishes, and cooking. -From your first office visit until the six week postoperative examination we recommend that you do not do any heavy lifting or straining, that you do not do any vacuuming, mopping, or sweeping. -We advise that you do not lift any heavy grocery bags from the cart to the car or from the car home. -We recommend that you do not do any yard work such as shoveling of snow, raking of leaves, cutting grass or gardening. -We recommend that you do not make beds or lift mattresses to change fitted sheets. -Light bleeding is normal for the first 4 weeks (i.e. changing panty liner 3 - 4 times a day.) Call me or go to the Emergency Room for heavy bleeding (soaking a maxipad every hour for 4 hours.) -Call the office or go to the Emergency Room if unable to reach me for fever, chills, worsening pain, persistent nausea/vomiting. -Call the office or go to the Emergency Room for shortness of breath, pain in your calfs or unusual swelling in your legs. -Showers are allowed until the vaginal drainage stops, then tub baths are generally acceptable unless otherwise specifically denied. -You will be advised at your first office visit when you may resume intercourse. This will be dependent upon the type of surgery performed. -We recommend that you use home remedies such as aspirin, Tylenol, Motrin for pain, Milk of Magnesia for laxative. If these preparations do not take care of your problem we want to be called and notified of your distress. -Please get prescriptions filled upon leaving the hospital and follow directions as outlined. Please note the refill limitations on the prescription. -If you have any specific questions not covered by these instructions please feel free to contact myself or one of the nurses who will answer your questions with my recommendations. -These instructions are intended to be a guideline for your postoperative care and recovery and are by no means intended to be totally complete. FOLLOW UP -Please call the office at ([phone]) to make follow appointment before leaving the hospital. -2 Weeks [facility] Work Phone: Assessments No Assessments Information Available Chief Complaint and Reason for Visit Chief Complaint Health Screening Chief Complaint Menorrhagia, Pelvic Pain, PCOS Chief Complaint Menorrhagia, Pelvic Pain, PCOS Menorrhagia, Pelvic Pain, PCOS Family History No Family History Records Found Relationship Condition Age at Onset Recorded Date/T el father Type 2 diabetes mellitus Unknown sister Malignant neoplasm of ovary Unknown Relationship Condition Age at Onset Recorded Date/T el father Type 2 diabetes mellitus Unknown sister Malignant neoplasm of ovary Unknown Not Specified Tachycardia Unknown Advance Directives No Advanced Directives Records Found Advance Directive Response Recorded Date/ Time Advance Directives No January 11:20am Advance Directive Response Recorded Date/ Time Advance Directives No January 10:20am Summary Purpose Additional Source Comments REASON FOR VISIT (unrecogniz ed section and content) LEFT SIDED JAW AND EAR PAIN Care Teams (unrecognized sec tion and content) Team Status: Inactive Member Role Status Dates Salina Qureshi MD Primary Care Provider Active Leonid Lopez DO [facility] Attending Provider Active Team Status: Active Member Role Status Dates Salina Qureshi MD Primary Care Provider Active Team Status: Inactive Member Role Status Dates Salina Qureshi MD Primary Care Provider Active Ally Sexton DO Attending Provider Active Goals (unrecognized section and content) Goals may be documented in a n alternate section INFORMATION SOURCE (unrecogn ized section and content) DATE CREATED AUTHOR 08/12/2022 [facility] DATE CREATED AUTHOR AUTHOR'S ORGANIZ ATION 12/05/2022 [facility] DATE CREATED AUTHOR AUTHOR'S ORGANIZ ATION 05/28/2023 [facility] DATE CREATED AUTHOR AUTHOR'S ORGANIZ ATION 06/11/2023 [facility] FOR RECORDS PERTAINING TO PATIENTS WHO ARE OR HAVE BEEN ENROLLED IN A CHEMICAL DEPENDENCY/SUBSTANCEABUSE PROGRAM, SOME INFORMATION MAY BE OMITTED. This clinical summary was aggregated from multiple sources. Caution should be exercised in using it in the provision of clinical care. This summary normalizes information from multiple sources, and as a consequence, information in this document may materially change the coding, format and clinical context of patient data. In addition, data may be omitted in some cases. CLINICAL DECISIONS SHOULD BE BASED ON THE PRIMARY CLINICAL RECORDS. [employer] provides no warranty or guarantee of the accuracy or completeness of information in this document.
== END 2023-11-29 11:22 | disposition home or self-care (01) ==
LOC: RAD 11:22
PROVIDERS: PCP Family Medicine; Visit Provider Family Medicine
DX: M23.90 Unspecified internal derangement of unspecified knee (principal)
CPT/HCPCS: 73562

== ENCOUNTER 2023-12-07 13:22 | Outpatient (OUT) | payer OTHER, SELFPAY ==
--- NOTE | 2023-12-07 | MR_ITS ---
The [address] [address] Patient Name: ANTHONY CAMARGO MRN: [id number] date: 1985 Sex: F Assigned Patient Location: MRI Current Patient Location: MRI Accession/Order Number: [id number] Exam Date: 12/07/2023 13:31 Report Date: 12/08/2023 16:47 At the request of: SALINA DOWNS Procedure: MR knee LT wo con EXAM: MR knee LT wo con HISTORY: Internal derangement of knee M23.9 COMPARISON: 11/29/2023. TECHNIQUE: MRI images obtained with multiple sequences. MRI of the left knee without contrast. Sequences obtained with standard department protocol. FINDINGS: Anterior cruciate and posterior cruciate ligaments are intact. Edema along the medial jointline consistent with medial collateral ligament sprain. There are intact medial collateral ligament fibers. (Grade 2). Medial meniscus is intact. Medial compartment articular cartilage is preserved. Lateral meniscus is intact. Lateral compartment articular cartilage is preserved. Extensor mechanism is intact. Patellofemoral articular cartilage is preserved. Bone marrow edema at the lateral femoral condyle, consistent with contusion. No popliteal cyst. Subcutaneous soft tissue edema of the anterior aspect of the knee joint. MR/MR knee LT wo con IMPRESSION: 1. Medial collateral ligament sprain. 2. Bone marrow edema of the lateral femoral condyle, consistent with contusion. 3. Anterior cruciate and posterior cruciate ligaments are intact. Medial and lateral menisci are intact. 4. No full-thickness chondral loss of the knee joint. Electronically authenticated by: JHAON NIETO Date: 12/08/2023 16:47
== END 2023-12-07 13:23 | disposition home or self-care (01) ==
LOC: MRI 13:22
PROVIDERS: PCP Family Medicine; Visit Provider Family Medicine
DX: M23.90 Unspecified internal derangement of unspecified knee (principal); S83.412A Sprain of medial collateral ligament of left knee, initial encounter; S80.02XA Contusion of left knee, initial encounter
CPT/HCPCS: 73721

== ENCOUNTER 2024-11-15 09:20 | Outpatient (OUT) | payer OTHER, SELFPAY ==
--- OUTSIDE RECORDS SUMMARY | 2024-08-23 11:30 | XMS_ITS ---
Author Organization The [facility] in [place] Address [address] [place] [address] Care Team Providers Care Area Coordinator Name Role Phone HussainJosh wilburn Primary Care Provider Allergies Allergen (clinical drug ingredient) Drug/Non Drug Allergy documented on EMR Reaction Allergy Type Onset Date Status diphenhydramine Benadryl rash Drug Allergy A ctive sumatriptan Imitrex rash Drug Allergy Activ e metformin metFORMIN HCl rash Drug Allergy Act yoseph diclofenac Diclofenac hives Drug Allergy Activ e morphine Morphine hives Drug Allergy Active REASON FOR VISIT Adipex Check Medications Medication SIG (Take, Route, Fr equency, Duration) Notes Start Date End Date Status Lexapro 20 MG 1 tablet Orally Once a day Active Topamax 100 MG 1 tablet Orally Once a day 07/12/19 25 Active Adipex-P 37.5 MG 1 tablet before navneet kfast Orally Once a day 08/23/2024 Active Social History Tobacco Use: Social History Observation Description Date Details (start date - stop date) Never Smoker NA - NA Tobacco Use/Smoking Question Answer Notes Patient is a nonsmoker Vital Signs Weight 286.0 lbs 08/23/2024 Height 66 in 08/23/2024 Blood pressure systolic 162 mm Hg 08/24/19 25 Blood pressure diastolic 92 mm Hg 025 BMI 46.16 kg/m2 08/23/2024 Encounters Encounter Location Date Provider Diagnosis [facility] [address] [place] [address] 08/23/2024 Josh Qureshi GERD (gastroesophage al reflux disease) K21.9 and Encounter for medication review Z79.899 Assessments Encounter Date Diagnosis (ICD Code) Assessment Notes Treatment Notes Treatment Clinical Notes Section Notes 08/23/2024 GERD (gastroesophage al reflux disease) (ICD-10 - K21.9) 08/23/2024 Encounter for medication review (ICD-10 - Z79.899) Plan Of Treatment Medication Medication Name Sig Start Date Stop Date Notes Adipex-P 37.5 MG 1 tablet before navneet kfast Orally Once a day 08/23/2024 Next Appt Details Provider Name:Josh Qureshi, 03:30:00 PM, [address] [facility], [place], [address], Progress Notes * Deborah CAMARGO ADOB:[birth year] (39 yo F)Acc No.[id number]:08/23/2024 Progress Note Patient: Deborah ESTRELLA Provider: Carrol Qureshi ([facility])MD :1985 A ge:39 Y S ex:Female Date:08/23/2024 Address:[address] [place], [place] [address] Check In:03:27 PM ESTCheck O ut:04:09 PM EST Subjective: * Chief Complaints: * A dipex Check * ROS: E ENT: hearing changes d enies. v isual changes d enies.�non-healing mouth sores d enies. s wollen glands or neck lumps d enies. h oarseness d enies. s ore throat d enies. d ifficulty swallowing d enies. n ose bleeds d enies. n yu congestion d enies. e ar ache d enies. e ar discharge�denies. r inging in ears d enies. l ight sensitivity d enies. e ye pain d enies. b lurring d enies. e ye irritation d enies. d ouble vision d enies.�vision loss d enies. G eneral/Constitutional: Sweats: D enies. F atigue d enies. S leep problems d enies. A norexia d enies. M alaise d enies. W eight loss d enies.�Fatigue or Weakness d enies. F ever or Chills d enies. C ardiovascular: Shortness of Breath w/lying flat d enies. L ightheadedness/dizziness d enies. C hest tightness/ heavy pressure d enies. S welling of legs, ankles, or feet d enies. W aking up with shortness of breath d enies. C hest pain denies. P alpitations d enies. W eight gain d enies. R espiratory: Chronic or frequent cough d enies. C oughing up blood�denies. D ifficulty breathing d enies. P roductive cough d enies. S noring�denies. S hortness of breath that awakens from sleep (PND) d enies. C hest pain d enies. S putum production d enies. W heezing d enies. M usculoskeletal: Joint pain d enies. J oint Fluid d enies. B ack pain d enies. K nee pain d enies. N maxim pain d enies. J oint Stiffness d enies. M uscle cramps d enies. W eakness of muscles d enies. A rthritis d enies. M uscle aches d enies. P ain in shoulder(s) d enies. S wollen joints d enies. * Active Problem List S86.311A Strain of peroneal t endon of right foot, initial encounter Modified On:08/04/2022U Status:confirmed S93.401A Moderate right ankle sprain, initial encounter Modified On:08/04/2022U Status:confirmed M23.90 Internal derangement of knee Modified On:11/29/2023U Status:confirmed K21.9 GERD (gastroesophage al reflux disease) Modified On:03/09/2024U Status:confirmed F32.9 Depression Modified On:03/09/2024U Status:confirmed M41.9 Scoliosis Modified On:03/09/2024U Status:confirmed * Medical History: * Surgical History: c ronda section x2 throat scope Dr. Castro 06/2020Hysterectomy (Left the Left Ovary) 04/16/2023 * Hospitalization/Major Diagno stic Procedure: D enies Past Hospitalization * Family History: F ather: alive, diagnosed with Diabetes mellitus without mention of complication, type II or unspecified type, not stated as uncontrolled, Unspecified heart disease. B mychaler(s): alive, diagnosed with Unspecified heart disease. S on(s): alive. D yajairaer(s): alive. M other: diagnosed with Unspecified heart disease. S ister(s): diagnosed with Unspecified heart disease. 1 brother(s) - healthy. 1 son(s) , 1 daughter(s) - healthy. . * Social History: T obacco Use: T obacco Use/Smoking P atient is a n onsmoker * Medications: T akingAdipex-P(Phentermine HCl) 37.5 MG Tablet 1 tablet before breakfast Orally Once a day Lexapro(Escitalopram Oxalate) 20 MG Tablet 1 tablet Orally Once a day Topamax(Topiramate) 100 MG Tablet 1 tablet Orally Once a day Taking Adipex-P(Phentermine HCl) 37.5 MG Tablet 1 tablet before breakfast Orally Once a day Taking Lexapro(Escitalopram Oxalate) 20 MG Tablet 1 tablet Orally Once a day Taking Topamax(Topiramate) 100 MG Tablet 1 tablet Orally Once a day DiscontinuedCefdinir 300 MG Capsule 2 capsule Orally once a day Medication List reviewed and reconciled with the patientDiscontinued Cefdinir 300 MG Capsule 2 capsule Orally once a day Medication List reviewed and reconciled with the patient * Allergies: B enadryl: rash - AllergyImitrex: rash - AllergymetFORMIN HCl: rash - Side EffectsMorphine: hives - Side EffectsDiclofenac: hives - Allergyno[Allergies Verified] Objective: * Vitals: W t:286.0lbs, Ht: 66 in, BP:162/92mm Hg, BMI:46.16Index, Ht-cm: 167.64 cm, Wt-k.73 kg. * Examination: P hysical Exam: GENERAL: w ell developed, well nourished, in no acute distress. HEAD: n ormocephalic/atraumatic. EYES: p upils equal, round and reactive to light, conjunctivae and sclerae normal. EARS: n o deformity or lesion of external ear, canals and TM appear normal bilaterally, TM's intact, not inflamed with normal light reflex, hearing grossly normal to conversational speech. NOSE: n o deformity, discharge, inflammation, or lesions.� MOUTH: m ucous membranes moist, normal oropharynx and posterior pharynx without lesions or exudates, tongue normal, dentition normal. NECK: n maxim supple, no masses or palpable cervical nodes, trachea midline, thyroid without nodules, masses, tenderness, or enlargement. CHEST: n o chest wall deformity, no chest wall tenderness.� LUNGS: n ormal respiratory effort and clear to auscultation, no wheezes, rales, or rhonchi, good air exchange. CARDIO: r egular rate and rhythm, normal S1 and S2, nor murmur, rub, or gallop. PULSES: n ormal capillary refill. ABDOMEN: s oft, non-distended, non-tender, no masses. MUSCULOSKELETAL: n o deformity or scoliosis noted, normal range of motion, joints normal, no erythema, edema, effusion, or ecchymosis. EXTREMITY: n o clubbing, cyanosis, edema, or deformity with normal ROM in both upper and lower bilateral extremities. NEUROLOGIC: g rossly normal. SKIN: n o rashes, ulcerations, or suspicious lesions. LYMPH NODES: n o cervical adenopathy, nodes normal. MENTAL STATUS: a lert and oriented x3, normal mood and affect. Assessment: * Assessment: 1. G ERD (gastroesophageal reflux disease) - K21.9 (Primary) 2 . E ncounter for medication review - Z79.899 Plan: * Treatment: * Procedure Codes: * Preventive Medicine: Screenings/Counseling: B [place] ACTION PLAN Above Normal BMI Follow-up D ietary management education, guidance, and counseling * * Sign off status: Completed Visit Status: C HK (Check Out) true * Provider: Carrol Qureshi ([facility])MD Date: 0 08/23/2024 Generated for Printi ng/Famegang/eTransmitting on: 0 11/15/2024 09:26 AM EDT History and Physical Notes * Examination Category Sub-Category Detail Notes Category Not es Physical Exam GENERAL: well developed, well nourished, in no acute distress HEAD: normocephalic/atraum atic EYES: pupils equal, round and reactive to light, conjunctivae and sclerae normal EARS: no deformity or lesi on of external ear, canals and TM appear normal bilaterally, TM's intact, not inflamed with normal light reflex, hearing grossly normal to conversational speech NOSE: no deformity, discha rge, inflammation, or lesions MOUTH: mucous membranes richard st, normal oropharynx and posterior pharynx without lesions or exudates, tongue normal, dentition normal NECK: neck supple, no mass es or palpable cervical nodes, trachea midline, thyroid without nodules, masses, tenderness, or enlargement CHEST: no chest wall deform ity, no chest wall tenderness LUNGS: normal respiratory e ffort and clear to auscultation, no wheezes, rales, or rhonchi, good air exchange CARDIO: regular rate and rhy thm, normal S1 and S2, nor murmur, rub, or gallop PULSES: normal capillary ref ill ABDOMEN: soft, non-distended, non-tender, no masses RECTAL: MUSCULOSKELETAL: no deformity or scol iosis noted, normal range of motion, joints normal, no erythema, edema, effusion, or ecchymosis EXTREMITY: no clubbing, cyanosi s, edema, or deformity with normal ROM in both upper and lower bilateral extremities NEUROLOGIC: grossly normal SKIN: no rashes, ulceratio ns, or suspicious lesions LYMPH NODES: no cervical adenopat hy, nodes normal MENTAL STATUS: alert and oriented x 3, normal mood and affect
--- OUTSIDE RECORDS SUMMARY | 2024-10-04 12:30 | XMS_ITS ---
Author Organization The [facility] in [place] Address [address] [place] [address] Care Team Providers Care Automotive Tire Technician Name Role Phone Josh Qureshi Primary Care Provider Allergies Allergen (clinical drug ingredient) Drug/Non Drug Allergy documented on EMR Reaction Allergy Type Onset Date Status diphenhydramine Benadryl rash Drug Allergy A ctive sumatriptan Imitrex rash Drug Allergy Activ e metformin metFORMIN HCl rash Drug Allergy Act yoseph diclofenac Diclofenac hives Drug Allergy Activ e morphine Morphine hives Drug Allergy Active REASON FOR VISIT 1mo f/u Medications Medication SIG (Take, Route, Fr equency, Duration) Notes Start Date End Date Status Adipex-P 37.5 MG 1 tablet before navneet kfast Orally Once a day 10/04/2024 Active Lexapro 20 MG 1 tablet Orally Once a day Active Social History Tobacco Use: Social History Observation Description Date Details (start date - stop date) Never Smoker NA - NA Tobacco Use/Smoking Question Answer Notes Patient is a nonsmoker Vital Signs Weight 282 lbs 10/04/2024 Height 66 in 10/04/2024 Blood pressure systolic 152 mm Hg 10/05/19 25 Blood pressure diastolic 82 mm Hg 025 BMI 45.51 kg/m2 10/04/2024 Encounters Encounter Location Date Provider Diagnosis [facility] [address] [place] [address] 10/04/2024 Josh Kiera Encounter for medication review Z79.899 and Internal derangement of knee M23.90 Assessments Encounter Date Diagnosis (ICD Code) Assessment Notes Treatment Notes Treatment Clinical Notes Section Notes 10/04/2024 Encounter for medication review (ICD-10 - Z79.899) 10/04/2024 Internal derangement of knee (ICD-10 - M23.90) Plan Of Treatment Medication Medication Name Sig Start Date Stop Date Notes Adipex-P 37.5 MG 1 tablet before navneet kfast Orally Once a day 10/04/2024 Next Appt Details Provider Name:Josh Qureshi, 03:30:00 PM, [address] [facility] [place], [address], Progress Notes * Deborah CAMARGO ADOB:[birth year] (39 yo F)Acc No.[id number]:10/04/2024 Progress Note Patient: Deborah ESTRELLA Provider: Carrol Qureshi ([facility])MD :1985 A ge:39 Y S ex:Female Date:10/04/2024 Address:[address] [place] [address] [facility]SS[facility] Check In:04:32 PM ESTCheck O ut:05:04 PM EST Subjective: * Chief Complaints: * 1 mo f/u * ROS: E ENT: hearing changes d [...] Depression Modified On:03/09/2024U Status:confirmed M41.9 Scoliosis Modified On:03/09/2024 Status:confirmed * Medical History: * Surgical History: c esarean section x2 throat scope Dr. Castro 06/2020Hysterectomy (Left the Left Ovary) 04/16/2023 * Hospitalization/Major Diagno stic Procedure: D enies Past Hospitalization * Family History: F ather: alive, diagnosed with Diabetes mellitus without mention of complication, type II or unspecified type, not stated as uncontrolled, Unspecified heart disease. B rother(s): alive, diagnosed with Unspecified heart disease. S on(s): alive. D phuc(s): alive. M other: diagnosed with Unspecified heart [...] Tablet 1 tablet Orally Once a day DiscontinuedTopamax(Topiramate) 100 MG Tablet 1 tablet Orally Once a day Medication List reviewed and reconciled with the patientDiscontinued Topamax(Topiramate) 100 MG Tablet 1 tablet Orally Once a day Medication List reviewed and reconciled with the patient * Allergies: B enadryl: rash - AllergyImitrex: rash - AllergymetFORMIN HCl: rash - Side EffectsMorphine: hives - Side EffectsDiclofenac: hives - Allergyno[Allergies Verified] Objective: * Vitals: W t:282lbs, Ht: 66 in, BP:152/82mm Hg, BMI:45.51Index, Ht-cm: 167.64 cm, Wt-k.91 kg. * Examination: P hysical Exam: GENERAL: [...] mood and affect. Assessment: * Assessment: 1. E ncounter for medication review - Z79.899 (Primary) 2 . I nternal derangement of knee - M23.90 Plan: * Treatment: * Procedure Codes: * Preventive Medicine: Screenings/Counseling: B [place] ACTION PLAN Above Normal BMI Follow-up D ietary management education, guidance, and counseling * * Sign off status: Completed Visit Status: C HK (Check Out) true * Provider: Carrol Qureshi ([facility])MD Date: 0 10/04/2024 Generated for Philomena patterson/Luis/eTransmitting on: 11/15/2024 09:26 AM EDT History and Physical [...]
--- OUTSIDE RECORDS SUMMARY | 2024-11-01 11:30 | XMS_ITS ---
Author Organization [facility] in [place] Address [address] [place] [address] Care Team Providers Care Agency Director Name Role Phone HussainJosh wilburn Primary Care Provider [phone] Allergies Allergen (clinical drug ingredient) Drug/Non Drug Allergy documented on EMR Reaction Allergy Type Onset Date Status diphenhydramine Benadryl rash Drug Allergy A ctive sumatriptan Imitrex rash Drug Allergy Activ e metformin metFORMIN HCl rash Drug Allergy Act yoseph diclofenac Diclofenac hives Drug Allergy Activ e morphine Morphine hives Drug Allergy Active REASON FOR VISIT 1 month f/u Medications Medication SIG (Take, Route, Fr equency, Duration) Notes Start Date End Date Status Lexapro 20 MG 1 tablet Orally Once a day Active Adipex-P 37.5 MG 1 tablet before navneet kfast Orally Once a day 11/01/2024 Active Social History Tobacco Use: Social History Observation Description Date Details (start date - stop date) Never Smoker NA - NA Tobacco Use/Smoking Question Answer Notes Patient is a nonsmoker AUDIT-C (Standard) Question Answer Notes Did you have a drink containing alcohol in the p ast year? No Points 0 Interpretation Negative Vital Signs Weight 282.0 lbs 11/01/2024 Height 66 in 11/01/2024 Blood pressure systolic 142 mm Hg 11/02/19 25 Blood pressure diastolic 84 mm Hg 025 BMI 45.51 kg/m2 11/01/2024 Encounters Encounter Location Date Provider Diagnosis [facility] [address] [place] [address] 11/01/2024 Josh Hoy GERD (gastroesophage al reflux disease) K21.9 Assessments Encounter Date Diagnosis (ICD Code) Assessment Notes Treatment Notes Treatment Clinical Notes Section Notes 11/01/2024 GERD (gastroesophage al reflux disease) (ICD-10 - K21.9) Plan Of Treatment Medication Medication Name Sig Start Date Stop Date Notes Adipex-P 37.5 MG 1 tablet before navneet kfast Orally Once a day 11/01/2024 Pending Test Test Name Order Date MM screening mammo BI 11/01/2024 Next Appt Details Provider Name:Josh Qureshi, 03:30:00 PM, [address] [facility], [place], [address], Progress Notes * Deborah CAMARGO ADOB:[birth year] (39 yo F)Acc No.[id number]:11/01/2024 Progress Note Patient: Deborah ESTRELLA Provider: Carrol Qureshi ([facility])MD :1985 A ge:39 Y S ex:Female Date:11/01/2024 Address:[address] [place], [place] [address] Check In:03:20 PM ESTCheck O ut:04:06 PM EST Subjective: * Chief Complaints: * 1 month f/u * ROS: E ENT: hearing changes [...] Status:confirmed * Medical History: * Surgical History: nate bond section x2 throat scope Dr. Castro 06/2020Hysterectomy [...] Use/Smoking P atient is a n onsmoker D rug/Alcohol: A ANTOINETTE-C (Standard) D id you have a drink containing alcohol in the past year? N o P oints 0 I nterpretation N egative * Medications: T akingAdipex-P(Phentermine HCl) 37.5 MG Tablet 1 tablet before breakfast Orally Once a day Lexapro(Escitalopram Oxalate) 20 MG Tablet 1 tablet Orally Once a day Medication List reviewed and reconciled with the patientTaking Adipex-P(Phentermine HCl) 37.5 MG Tablet 1 tablet before breakfast Orally Once a day Taking Lexapro(Escitalopram Oxalate) 20 MG Tablet 1 tablet Orally Once a day Medication List reviewed and reconciled with the patient * Allergies: B enadryl: rash - AllergyImitrex: rash - AllergymetFORMIN HCl: rash - Side EffectsMorphine: hives - Side EffectsDiclofenac: hives - Allergyno[Allergies Verified] Objective: * Vitals: W t:282.0lbs, Ht: 66 in, BP:142/84mm Hg, BMI:45.51Index, Ht-cm: 167.64 cm, Wt-k.91 kg. [...] ERD (gastroesophageal reflux disease) - K21.9 (Primary) Plan: * Treatment: * Procedure Codes: * Preventive Medicine: Screenings/Counseling: B [place] ACTION PLAN Above Normal BMI Follow-up D ietary management education, guidance, and counseling * * Sign off status: Completed Visit Status: C HK (Check Out) true * Provider: Carrol Qureshi ([facility])MD Date: 11/01/2024 Generated for Philomena patterson/Luis/Dottyitting on: 11/15/2024 09:25 AM EDT History and Physical Notes * [...]
--- OUTSIDE RECORDS SUMMARY | 2024-11-15 09:26 | XMS_ITS | Encounter Summary ---
Author Organization [facility] Address [address] [place] [address] Care Team Providers Care Aquarium Specialist Name Role Phone Edouard Qureshi MD Primary Care Provider [phone] Hernandez Caldera DO Unavailable [phone] Encounter Details Date Type Department Care Team (Late Contact Info) Description 04/02/2023 External Result Encounter [facility] Department Unsolicited Ally Sexton, DO [address] [place] [address] Social History Tobacco Use Types Packs/Day Years Used Date Smoking Tobacco: Never Alcohol Use Standard Drinks/Week Comments Yes 0 (1 standard drink = 0.6 oz pure alcohol) 1-2 drinks less than monthly in the past year, Caffeine intake: 1-2 cups per day Education Answer Date Recorded What is the highest level of school you have completed or the highest degree you have received? Bachelor's degree (e.g., BA, AB, BS) 02/03/2023 Comments Unknown Sex and Gender Information Value Date Recorded Sex Assigned at Female 02/03/2023 3:41 PM EDT Legal Sex Female 7:03 PM EDT Gender Identity Female 02/03/2023 3:41 PM EDT Sexual Orientation Straight 02/03/2023 3: 41 PM EDT documented as of this encounter Plan of Treatment Upcoming Encounters Date Type Department Care Team (Late st Contact Info) Description 10/11/2025 11:00 AM EDT Office Visit [facility] [address] [place] [address] Ally Sexton DO [address] [place] [address] documented as of this encounter Procedures Procedure Name Priority Date/Time Associated Diagnosis Comments ECG 12-LEAD 04/02/2023 11:26 AM EST documented in this encounter Results * ECG 12 lead (04/02/2023 11:26 AM EST) 04/02/2023 11:2 6 AM EST [facility] - 04/05/2023 2:26 PM EST [facility] Main [address] [address] Electrocardiograph Report Signed Patient: Deborah Vance MR#: [id number] : 1985 Acct:[id number] Age/Sex: 37 / F ADM Date: 04/02/23 Loc: Room: Type: [facility] Attending Dr: Ally Sexton DO Ordering [...] No significant change was found Confirmed by TOMÁS CHRISTIANSON MD, FACC ([id number]) on 04/03/2023 12:54:40 AM Referred By: ALICE Electronically Signed By:TOMÁS CHRISTIANSON MD, FACC Transcribed By: MUS Signed By Devan Christianson MD 04/03/23 0054 Procedure Note Devendra Christianson MD - 04/05/2023 [facility] Main [place] [address] [place] [address] Electrocardiograph Report Signed Patient: Deborah Vance AMR#: [id number] : 1985Acct:[id number] Age/Sex: 37 / FADM Date: 04/02/23 Loc: Room:Type: [facility] Attending Dr: Ally Sexton DO Ordering [...] change was found Confirmed by MEGHAN MCCLENDON [facility] ([id number]) on 04/03/2023 12:54:40 AM Referred By: ALICE Electronically Signed By:TOMÁS CHRISTIANSON [facility] Transcribed By: [facility] Signed By Devan Christianson MD 04/03/23 0054 us Ally Sexton DO ECG ORDERABLES Final Resul t [address] [address], documented in this encounter Visit Diagnoses Not on filedocumented in this encounter Care Teams Aquarium Specialist Relationship Specialty Start Date End Date Edouard Qureshi MD PCP - General Family Medicine 02/04/23 Hernnadez Caldera DO [address] [place] [address] PCP - Medical [place] [employer] 06/03/13 02/13/24 documented as of this encounter
--- OUTSIDE RECORDS SUMMARY | 2024-11-15 09:26 | XMS_ITS | Encounter Summary ---
Author Organization [facility] Address [address] [place] [address] Care Team Providers Care Client Development Consultant Name Role Phone Edouard Qureshi MD Primary Care Provider [phone] Hernandez Caldera DO Unavailable [phone] Reason for Visit * Reason Onset Date Comments Med Refill 03/30/2023 Encounter Details Date Type Department Care Team (Late st Contact Info) Description 03/30/2023 Refill [facility] [address] [facility] [address] [place] [address] Elaine aYñez MD [address] [facility] [address] [place] [address] Anxiety, generalized Social History Tobacco Use Types Packs/Day Years [...] PM EDT documented as of this encounter Miscellaneous Notes * Telephone Encounter - Oliva Jean LPN - 04/08/2023 10:02 AM EST The medication has been filled for 1 year. It looks like 2 refill requests came in, one with your name on it, one with Dr. Yañez. I did update and resend the rx to reflect you as the patient's provider. * Telephone Encounter - Ally Sexton DO - 04/06/2023 9:58 AM EST Has this been refilled? Ok to refill until next yearly * Telephone Encounter - Ally Sexton DO - 03/30/2023 4:21 PM EST The message said Dr. Yañez reordered? * Telephone Encounter - Ally Sexton DO - 03/30/2023 12:23 PM EST Ok to refill to yearly appointment. Anxiety/depression dx documented in this encounter Plan of Treatment Upcoming Encounters Date Type Department Care Team (Late st Contact Info) Description 10/11/2025 11:00 AM EDT Office Visit [facility] [address] [place] [address] Ally Sexton DO [address] [place] [address] documented as of this encounter Visit Diagnoses Diagnosis Anxiety, generalized documented in this encounter Care Teams Client Development Consultant Relationship Specialty Start Date End Date Edouard Qureshi MD PCP - General Family Medicine 02/04/23 Hernandez Caldera DO [address] [place] [address] [address] PCP - Medical [place] [employer] 06/03/13 02/13/24 documented as of this encounter
--- OUTSIDE RECORDS SUMMARY | 2024-11-15 09:26 | XMS_ITS | Patient Health Record ---
Author Organization [facility] in [place] Address [address] [place] [address] Care Team Providers Care Agronomy Teacher Name Role Phone Josh Downs Primary Care Provider Allergies Allergen (clinical drug ingredient) Drug/Non Drug Allergy documented on EMR Reaction Allergy Type Onset Date Status diphenhydramine Benadryl rash Drug Allergy A ctive sumatriptan Imitrex rash Drug Allergy Activ e metformin metFORMIN HCl rash Drug Allergy Act yoseph diclofenac Diclofenac hives Drug Allergy Activ e morphine Morphine hives Drug Allergy Active Results Component Value Reference Range Notes XR KNEE LT 3V Reviewed date:11/30/2023 07:47:46 AM Interpretation: Performing Lab: Notes/Report: Source Facility: [place] [address] [place] [address] XRay Report Signed Patient: ANTHONY CAMARGO MR#: [id number] : 1985 Acct:[id number] Age/Sex: 38 / F ADM Date: 11/29/23 Loc: RAD Attending Dr: Salina Downs M.D. Ordering Physician: Salina Downs M.D. Date of Service: 11/29/23 Procedure(s): XR knee LT 3V Accession Number(s): [id number] cc: Salina Downs M.D. [place] [address] Patient Name: ANTHONY CAMARGO MRN: [facility]:[id number] date: 1985 Sex: F Assigned Patient Location: [facility] Current Patient Location: Accession/Order Number: [id number] Exam Date: 11/29/2023 11:40 Report Date: 11/30/2023 07:33 At the request of: SALIAN DOWNS Procedure: XR knee LT 3V PROCEDURE: XR knee LT 3V COMPARISON: None. HISTORY: Internal Derangement Of Knee M23.90 FINDINGS: BONES:No fracture, acute abnormality, or significant arthropathy. SOFT TISSUES:Negative. No visible soft tissue swelling. EFFUSION:None visible. OTHER: Negative. XR/XR knee LT 3V IMPRESSION: No acute radiographic abnormality Electronically authenticated by: CYNTHIA MAJANO Date: 11/30/2023 07:33 Dictated By: Cynthia Majano M.D. Signed By: 11/30/2336 DD/ 2 TD/TT: Occupational Medicine Officer: [place] [address] XRay Report Signed Patient: AMITA CAMARGO MR#: [id number] : 1985 Acct:[id number] Age/Sex: 38 / F ADM Date: 11/29/23 Loc: RAD Attending Dr: Salina Downs M.D. Ordering Physician: Salina Downs M.D. Date of Service: 11/29/23 Procedure(s): XR knee LT 3V Accession Number(s): [id number] cc: Salina Downs M.D. [place] [id number] Patient Name: ANTHONY CAMARGO MRN: [id number] date: 1985 Sex: F Assigned Patient Location: [facility] Current Patient Location: Accession/Order Numb er: [id number] Exam Date: 11/29/2023 11:40 Report Date: 11/30/2023 07:33 At the request of: SALINA DOWNS Procedure: XR knee LT 3V PROCEDURE: XR knee LT 3V COMPARISON: None. HISTORY: Internal De rangement Of Knee M23.90 FINDINGS: BONES:No fracture, a cute abnormality, or significant arthropathy. SOFT TISSUES:Negativ e. No visible soft tissue swelling. EFFUSION:None visible. OTHER: Negative. X R/XR knee LT 3V IMPRESSION: No acute radiographi c abnormality Electronically authe nticated by: CYNTHIA MAJANO Date: 11/30/2023 07:33 Dictated By: Cynthia Majano M.D. Signed By: 11/30/2336 DD/ 2 TD/TT: Occupational Medicine Officer: MR knee LT wo con Reviewed date:12/08/2023 08:16:10 PM Interpretation: Performing Lab: Notes/Report: Source Facility: [place] [address] Magnetic Resonance Report Signed Patient: ANTHONY CAMARGO MR#: [id number] : 1985 Acct:[id number] Age/Sex: 38 / F ADM Date: 12/07/23 Loc: MRI Attending Dr: Salina Downs M.D. Ordering Physician: Salina Downs M.D. Date of Service: 12/07/23 Procedure(s): MR knee LT wo con Accession Number(s): [id number] cc: Salina Downs M.D. [place] [address] Patient Name: ANTHONY CAMARGO MRN: [id number] date: 1985 Sex: F Assigned Patient Location: MRI Current Patient Location: MRI Accession/Order Number: [id number] Exam Date: 12/07/2023 13:31 Report Date: 12/08/2023 16:47 At the request of: SALINA DOWNS Procedure: MR knee LT wo con EXAM: MR knee LT wo con HISTORY: Internal derangement of knee M23.9 COMPARISON: 11/29/2023. TECHNIQUE: MRI images obtained with multiple sequences. MRI of the left knee without contrast. Sequences obtained with standard department protocol. FINDINGS: Anterior cruciate and posterior cruciate ligaments are intact. Edema along the medial jointline consistent with medial collateral ligament sprain. There are intact medial collateral ligament fibers. (Grade 2). Medial meniscus is intact. Medial compartment articular cartilage is preserved. Lateral meniscus is intact. Lateral compartment articular cartilage is preserved. Extensor mechanism is intact. Patellofemoral articular cartilage is preserved. Bone marrow edema at the lateral femoral condyle, consistent with contusion. No popliteal cyst. Subcutaneous soft tissue edema of the anterior aspect of the knee joint. MR/MR knee LT wo con IMPRESSION: 1. Medial collateral ligament sprain. 2. Bone marrow edema of the lateral femoral condyle, consistent with contusion. 3. Anterior cruciate and posterior cruciate ligaments are intact. Medial and lateral menisci are intact. 4. No full-thickness chondral loss of the knee joint. Electronically authenticated by: JHOAN YE Date: 12/08/2023 16:47 Dictated By: Jhoan Ye M.D. Signed By: 12/08/23 1657 DD/ 46 TD/TT: Occupational Medicine Officer: [place] [address] Magnetic Resonance Report Signed Patient: MAITA CAMARGO MR#: [id number] : 1985 Acct:[id number] Age/Sex: 38 / F ADM Date: 12/07/23 Loc: MRI Attending Dr: Salina Downs M.D. Ordering Physician: Salina Downs M.D. Date of Service: 12/07/23 Procedure(s): MR knee LT wo con Accession Number(s): [id number] cc: Salina Downs M.D. [place] [address] Patient Name: ANTHONY CAMARGO MRN: [id number] date: 1985 Sex: F Assigned Patient Location: MRI Current Patient Location: MRI Accession/Order Numb er: [id number] Exam Date: 12/07/2023 13:31 Report Date: 12/08/2023 16:47 At the request of: SALINA DOWNS Procedure: MR knee LT wo con EXAM: MR knee LT wo con HISTORY: Internal de rangement of knee M23.9 COMPARISON: 11/29/2023. TECHNIQUE: MRI image s obtained with multiple sequences. MRI of the left knee without contrast. Se quences obtained with standard department protocol. FINDINGS: Anterior c ruciate and posterior cruciate ligaments are intact. Edema along the medi al jointline consistent with medial collateral ligament sprain. There are in tact medial collateral ligament fibers. (Grade 2). Medial meniscus is intact. Medial compartment a rticular cartilage is preserved. Lateral meniscus is intact. Lateral compartment articular cartilage is preserved. Extensor mechanism is intact. Patellofemoral artic ular cartilage is preserved. Bone marrow edema at the lateral femoral condyle, consistent with contusion. No popliteal cyst. Subcutaneous soft ti ssue edema of the anterior aspect of the knee joint. M R/MR knee LT wo con IMPRESSION: 1. Medial collateral ligament sprain. 2. Bone marrow edema of the lateral femoral condyle, consistent with contusion. 3. Anterior cruciate and posterior cruciate ligaments are intact. Medial and lateral menisci are intact. 4. No full-thickness chondral loss of the knee joint. Electronically authe nticated by: JHOAN YE Date: 12/08/2023 16:47 Dictated By: Jhoan Ye M.D. Signed By: 12/08/23 927 DD/ 9157 TD/TT: Occupational Medicine Officer: COVID-19, Flu A+B IH (Not ye t reviewed by provider) Interpretation: Performing Lab: Notes/Report: COVID neg FLU A neg FLU B neg Control pos Reason For Referral No Information Medications Medication SIG (Take, Route, Fr equency, [...] Question Answer Notes Patient is a nonsmoker Alcohol Screen (Audit-C) Question Answer Notes Did you have a drink contain ing alcohol in the past year? Yes How often did you have 6 or more drinks on one occasion in the past year? Never (0 point) How many drinks did you have on a typical day when you were drinking in the past year? 1 or 2 drinks (0 point) How often did you have a dri nk containing alcohol in the past year? Less than monthly (1 point) Points 1 Interpretation Negative AUDIT-C (Standard) Question Answer Notes Did you have a drink containing alcohol in the p ast year? No Points 0 Interpretation Negative Problems Problem Type SNOMED Code ICD Code Onset Dates Problem Status W/U Status Risk Notes Problem Gastroesophageal reflux disease (793227336) GERD (gastroesophag eal reflux disease) (K21.9) Active confirmed Problem Depression (567460878) Depression (F32.9) Active confirmed Problem Scoliosis (035628651) Scoliosis (M41.9) Active confirmed Problem Internal derangement of knee (44472341) Internal derangement of knee (M23.90) Active confirmed Problem 44853875 Moderate right ankle sprain, initial encounter (S93.401A) Active confirmed Problem 614453590 Strain of peroneal tendon of right foot, initial encounter (S86.311A) Active confirmed Vital Signs Blood pressure diastolic 84 mm Hg 11/01/2024 Height 66 in 11/01/2024 Blood pressure systolic 142 mm Hg 11/01/2024 Weight 282.0 lbs 11/01/2024 BMI 45.51 kg/m2 11/01/2024 Encounters Encounter Location Date Provider Diagnosis [facility] [address] [place] [address] 11/30/2023 Josh Downs [facility] [address] [place] [address] 12/03/2023 Josh Downs [facility] [address] [place] [address] 12/08/2023 Josh Downs [facility] [address] [place] [address] 08/23/2024 Josh Hoy GERD (gastroesophage al reflux disease) K21.9 and Encounter for medication review Z79.899 [facility] [address] [place] [address] 10/04/2024 Josh Hoy Encounter for medication review Z79.899 and Internal derangement of knee M23.90 [facility] [address] [place] [address] 11/01/2024 Josh Hoy GERD (gastroesophage al reflux disease) K21.9 [facility] [address] [place] [address] 11/29/2023 Josh Hoy Internal derangement of knee M23.90 [facility] [address] [place] [address] 07/11/2024 Josh Hoy Nasal congestion R09 .81 and Acute non-recurrent sinusitis, unspecified location J01.90 Assessments Encounter Date Diagnosis (ICD Code) Assessment Notes Treatment Notes Treatment Clinical Notes Section Notes 11/29/2023 Internal derangement of knee (ICD-10 - M23.90) 07/11/2024 Nasal congestion (ICD-10 - R09.81) 08/23/2024 GERD (gastroesophage al reflux disease) (ICD-10 - K21.9) 08/23/2024 Encounter for medication review (ICD-10 - Z79.899) 10/04/2024 Encounter for medication review (ICD-10 - Z79.899) 10/04/2024 Internal derangement of knee (ICD-10 - M23.90) 11/01/2024 GERD (gastroesophage al reflux disease) (ICD-10 - K21.9) 07/11/2024 Acute non-recurrent sinusitis, unspecified location (ICD-10 - J01.90) Rest and drink more liquids, especially water. You may use a humidifier or vaporizer to help keep the drainage moist. Zfyg-bod-tymgcog Nasal Saline may help the stuffy and runny nose. Use Ibuprofen and or Tylenol as needed for fever, chills, body aches or pain. Children 5 years old should not be given uuby-lkd-nztauqv cough and cold medications such as guaifenesin and dextromethorphan. If you're over age 5, you may try kvau-lzu-ggwjlhj cold medications such as guaifenesin and dextromethorphan, or multi-symptom cold reliever such as Dayquil to help reduce the symptoms. Antibiotics have been prescribed. You should take these until completed and follow the directions. Antibiotics can sometimes cause upset stomach, and in rare cases, serious allergic reactions or serious gastrointestinal problems. If you start having severe abdominal pain, severe vomiting, or bloody diarrhea, you should be reevaluated by your physician or urgent care immediately. Follow up with your Primary Care Provider or return to clinic if symptoms do not improve within 3-5 days Plan Of Treatment Pending Test Test Name Order Date INFLUENZA A and B, NASAL/NASOPHARYNGEAL (PCR) 07/12/2023 SARS COVID-2 NASAL - PCR 07/12/2023 COVID-19, Flu A+B IH 07/11/2024 MRI KNEE LT WO CON 11/29/2023 MM screening mammo BI 11/01/2024 Next Appt Details Provider Name:Josh Downs, 03:30:00 PM, [address] [facility], [place], [address], Insurance Providers Payer Name Payer Address Payer Phone Subscriber Number Group Number Insured Name Patient Relationship to Insured Coverage Start Date Coverage End Date MMO [employer] [address] [place] [address] [id number] Anthony Camargo Self - patient is the insured 4 Medical (General) History Surgical History Surgery Date(Month/Year) throat scope Dr. Castro 06/2020 section x2 Hysterectomy (Left the Left Ovary) 04/16
--- OUTSIDE RECORDS SUMMARY | 2024-11-15 09:26 | XMS_ITS | Encounter Summary ---
Author Organization [facility] Address [address] [place] [address] Care Team Providers Care Software Quality Specialist Name Role Phone Edouard Qureshi MD Primary Care Provider [phone] Hernandez Caldera DO Unavailable [phone] Reason for Visit * Reason Comments Med Refill Encounter Details Date Type Department Care Team (Late Contact Info) Description 11/08/2022 Refill [facility] [address] [place] [address] Ally Sexton DO [address] [facility] [address] [place] [address] Encounter for routine follow-up ([facility]) Social History Tobacco Use Types Packs/Day Years Used Date Smoking Tobacco: Never Assessed Comments Unknown Sex and Gender Information Value Date Recorded Sex Assigned at Female 02/03/2023 3:41 PM EDT Legal Sex Female 7:03 PM EDT Gender Identity Female 02/03/2023 3:41 PM EDT Sexual Orientation Straight 02/03/2023 3: 41 PM EDT documented as of this encounter Plan of Treatment Upcoming Encounters Date Type Department Care Team (Late Contact Info) Description 10/11/2025 11:00 AM EDT Office Visit [facility] [address] [place] [address] Ally Sexton DO [address] [place] [address] documented as of this encounter Visit Diagnoses Diagnosis Encounter for routine follow-up ([facility]) documented in this encounter Care Teams Software Quality Specialist Relationship Specialty Start Date End Date Edouard Qureshi MD PCP - General Family Medicine 02/04/23 Hernandez Caldera DO [address] [place] [address] PCP - Medical [place] [employer] 06/03/13 02/13/24 documented as of this encounter
--- OUTSIDE RECORDS SUMMARY | 2024-11-15 09:26 | XMS_ITS | Encounter Summary ---
Author Organization [facility] Address [address] [place] [address] Care Team Providers Care Streaming Media Specialist Name Role Phone Edouard Qureshi MD Primary Care Provider [phone] Hernandez Caldera DO Unavailable [phone] Encounter Details Date Type Department Care Team (Late Contact Info) Description 02/03/2023 Abstract [facility] [address] [facility] [address] [place] [address] Ally Sexton DO [address] [facility] [address] [place] [address] Social History Tobacco Use Types Packs/Day Years Used Date Smoking Tobacco: Never Tobacco Cessation:Counseling Given: Not Answered Alcohol Use Standard Drinks/Week Comments Yes 0 [...] Orientation Straight 02/03/2023 3: 41 PM EDT COVID-19 Exposure Response Date Recorded In the last 10 days, have yo u been in contact with someone who was confirmed or suspected to have Coronavirus/COVID-19? No / Unsure 02/03/2023 3:48 PM EDT documented as of this encounter Plan of Treatment Upcoming Encounters Date Type Department Care Team (Late st Contact Info) Description 10/11/2025 11:00 AM EDT Office Visit [facility] [address] [place] [address] Ally Sexton DO [address] [place] [address] documented as of this encounter Visit Diagnoses Not on filedocumented in this encounter Care Teams Streaming Media Specialist Relationship Specialty Start Date End Date Edouard Qureshi MD PCP - General Family Medicine 02/04/23 Hernandez Caldera DO [address] [place] [address] PCP - Medical [place] [employer] 06/03/13 02/13/24 documented as of this encounter
--- OUTSIDE RECORDS SUMMARY | 2024-11-15 09:26 | XMS_ITS | Encounter Summary ---
Author Organization [facility] Address [address] [place] [address] Care Team Providers Care Licensed Master Social Worker Name Role Phone Edouard Qureshi MD Primary Care Provider [phone] Hernandez Caldera DO Unavailable [phone] Encounter Details Date Type Department Care Team (Late Contact Info) Description 04/16/2023 Abstract [facility] [address] [facility] [address] [place] [address] Ally Sexton, [address] [facility] [address] [place] [address] Social History Tobacco Use Types Packs/Day Years Used Date Smoking Tobacco: Never Alcohol Use Standard Drinks/Week Comments Yes 0 (1 standard drink = 0.6 oz pure alcohol) 1-2 drinks less than monthly in the past year, Caffeine intake: 1-2 cups per day AUDIT-C Answer Date Recorded Q1: How often do you have a drink containing alc ohol? Monthly or less 04/15/2023 Q2: How many drinks containi ng alcohol do you have on a typical day when you are drinking? 1 or 2 04/15/2023 Q3: How often do you have si x or more drinks on one occasion? Never 04/15/2023 Education Answer Date Recorded What is the [...] OB [address] [place] [address] Ally Sexton DO [address] [place] [address] documented as of this encounter Visit Diagnoses Not on filedocumented in this encounter Care Teams Licensed Master Social Worker Relationship Specialty Start Date End Date Edouard Qureshi MD PCP - General Family Medicine 02/04/23 Hernandez Caldera DO [address] [place] [address] PCP - Medical [place] [employer] 06/03/13 02/13/24 documented as of this encounter
--- OUTSIDE RECORDS SUMMARY | 2024-11-15 09:26 | XMS_ITS | Encounter Summary ---
Author Organization [facility] Address [address] [place] [address] Care Team Providers Care Sack Lifter Name Role Phone Edouard Qureshi MD Primary Care Provider [phone] Hernandez Caldera DO Unavailable [phone] Encounter Details Date Type Department Care Team (Late Contact Info) Description 06/09/2023 Orders Only [facility] [address] [facility] [address] [place] [address] Ally Sexton, DO [address] [facility] [address] [place] [address] Social History Tobacco Use Types Packs/Day Years [...] OB [address] [place] [address] Ally Sexton DO [address] [place] [address] documented as of this encounter Procedures Procedure Name Priority Date/Time Associated Diagnosis Comments ULTRASOUND : TRANSVAGINAL Routine 2022 1:37 PM EDT documented in this encounter Results * ULTRASOUND : TRANSVAGINAL (03/03/2023 1:37 PM EDT) Anatomical Region Laterality Modality Radiographic Khadijah ging us Ally Sexton DO IMG XR PROCEDURES Final Res ult documented in this encounter Visit Diagnoses Not on filedocumented in this encounter Care Teams Sack Lifter Relationship Specialty Start Date End Date Edouard Qureshi MD PCP - General Family Medicine 02/04/23 Hernandez Caldera DO [address] [place] [address] PCP - Medical [place] [employer] 06/03/13 02/13/24 documented as of this encounter
--- OUTSIDE RECORDS SUMMARY | 2024-11-15 09:26 | XMS_ITS | Clinical Summary ---
Author Organization [facility] Address [address] [place] [address] Care Team Providers Care Harness Repairer Name Role Phone Edouard Qureshi MD Primary Care Provider [phone] Allergies Active Allergy Reactions Criticality Noted Date Comments Diphenhydramine 02/04/2023 Other Reaction(s): Unknown Sumatriptan 03/08/2024 Metformin Hives,Itching,Rash,S well ing Low 02/04/2023 Morphine 02/04/2023 Other Reaction(s): hives, itching Medications escitalopram (Lexapro) 20 MG tabletIndication s:Anxiety, generalized TAKE 1 TABLET BY MOUTH EVERY DAY IN THE MORNING 90 tablet 3 04/10/2024 Active Adipex-P 37.5 MG tablet 1 (one) time each day at the same time 08/23/2024 Active Ubrelvy 100 MG tablet TAKE 1 TABLET BY MOUTH ONCE DAILY IF NEEDED MAY REPEAT 1 TAB IN 2 HOURS *MAX 2 TABS PER 24 HOUR* 08/11/2024 Active Encounters Date Type Department Care Team Description 10/03/2024 11:45 AM EDT Office Visit [facility] [address] [place] [address] Ally Sexton, Encounter for gynecological examination without abnormal finding; Encounter for screening for malignant neoplasm of vagina 10/03/2024 Bamboo flowsheet [facility] [address] [place] [address] Ally SextonDO 10/03/2024 Travel from Last 3 Months Family History Medical History Relation Name Comments ADD / ADHD Brother Heart murmur Brother Allergies Father Asthma Father Diabetes Father Heart failure Maternal Grandfather Aneurysm Maternal Grandmother Skin cancer Maternal Grandmother Allergies Mother seasonal Urinary tract infection Mother Lung cancer Paternal Grandmother Cervical cancer Sister Polycystic ovary syndrome Sister Relation Name Status Comments Brother Daughter 1, healthy Father Maternal Grandfather Maternal Grandmother Mother Paternal Grandmother Sister 1 Son 1 Social History Tobacco Use Types Packs/Day Years Used Date Smoking Tobacco: Never Smokeless Tobacco: Never Alcohol Use Standard Drinks/Week Comments [...] degree (e.g., BA, AB, BS) 02/03/2023 Comments No Sex and Gender Information Value Date Recorded Sex Assigned at Female 02/03/2023 3:41 PM EDT Legal Sex Female 7:03 PM EDT Gender Identity Female 02/03/2023 3:41 PM EDT Sexual Orientation Straight 02/03/2023 3: 41 PM EDT Last Filed Vital Signs Vital Sign Reading Time Taken Comments Blood Pressure 140/90 10/03/2024 11:41 AM EDT Pulse 92 03/08/2024 8:39 AM EST Temperature - - Respiratory Rate - - Oxygen Saturation 98% 03/08/2024 8:39 AM EST Inhaled Oxygen Concentration - - Weight 128 kg (283 lb) 10/03/2024 11:41 AM EDT Height 167.6 cm (5' 6 ) 03/08/2024 8:39 AM EST Body Mass Index 45.68 03/08/2024 8:39 AM EST Plan of Treatment Upcoming Encounters Date Type Department Care Team (Late st Contact Info) Description 10/11/2025 11:00 AM EDT Office Visit [facility] [address] [place] [address] Ally Sexton, DO [address] [place] [address] Procedures Procedure Name Priority Date/Time Associated Diagnosis Comments IGP, RFX APTIMA HPV ASCU Routine 10/03/2024 12:00 AM EDT Encounter for screening for malignant neoplasm of vagina from Last 3 Months Results * IGP, RFX APTIMA HPV ASCU (10/03/2024 12:00 AM EDT) Diagnosis: Comment [facility] Comment:NEGATIVE FOR INTRAEP ITHELIAL LESION OR MALIGNANCY. Specimen Adequacy: Comment [facility] Comment: Satisfactory for evaluation. No endocervical cells are present. This is consistent with a history of hysterectomy. Clinician Provided ICD10: Comment [facility] Comment:Z12.72 Performed By: Comment [facility] Comment:Lisseth Berumen Cytol ogist (ASCP) Cyto Comments . [facility] Note: Comment [facility] Comment: The Pap smear is a screening test designed to aid in the detection of premalignant and malignant conditions of the uterine cervix. It is not a diagnostic procedure and should not be used as the sole means of detecting cervical cancer. Both false-positive and false-negative reports do occur. Test Methodology: Comment [facility] Comment: This liquid based ThinPrep(R) pap test was screened with the use of an image guided system. . Comment [facility] Comment: The HPV DNA reflex criteria were not met with this specimen result therefore, no HPV testing was performed. 10/03/2024 10/04/2024 Narrative [facility] - 10/05/2024 3:07 PM EDT Performed at: [address] [place] [id number] Pit Manager: Lila Blanton MD, Phone: [phone] Specimen Comment: [id number] Specimen Comment: No. of containers..01 ThinPrep Vial Ally Sexton DO LAB BLOOD ORDERABLES Final Result [facility] from Last 3 Months Insurance [employer] Care Teams Harness Repairer Relationship Specialty Start Date End Date Edouard Qureshi MD PCP - General Family Medicine 02/04/23
--- NOTE | 2024-11-15 09:50 | MM_ITS ---
Patient Name: ANTHONY CAMARGO MR#: [id number] : 1985 Exam Date: 11/15/2024 Ordering Doctor: DR SALINA DOWNS . RADIOLOGY REPORT PROCEDURE: MM TOMOSYNTHESIS SCREENING BI COMPARISON: None. INDICATIONS: Screening Calculator Name NCI Breast Cancer Risk Assessment Tool 5 Year Breast Cancer Risk 0.80% Lifetime Breast Cancer Risk 17.90% Personal Breast Cancer No Personal Ovarian Cancer No Treatments None Family Cancers Mother with breast cancer at age 65; Sister with ovarian cancer at age ~35. LOCATION: [facility] BREAST COMPOSITION: The breasts are almost entirely fatty. FINDINGS: RIGHT BREAST: No significant suspicious finding. LEFT BREAST: No significant suspicious finding. DIAGNOSTIC CATEGORY 1--NEGATIVE. RECOMMENDATIONS: CLINICAL EVALUATION. PLEASE NOTE: A NORMAL MAMMOGRAM DOES NOT EXCLUDE THE POSSIBILITY OF BREAST CANCER. A CLINICALLY SUSPICIOUS PALPABLE LUMP SHOULD BE BIOPSIED. Dictated by: Joey Gonzalez MD on 11/15/2024 at 12:35 Approved by: Joey Gonzalez MD on 11/15/2024 at 12:39
== END 2024-11-15 09:21 | disposition home or self-care (01) ==
LOC: MAMMO 09:24
PROVIDERS: PCP Family Medicine; Visit Provider Family Medicine
DX: Z12.31 Encounter for screening mammogram for malignant neoplasm of breast (principal); Z80.3 Family history of malignant neoplasm of breast; Z80.41 Family history of malignant neoplasm of ovary
CPT/HCPCS: 77063; 77067